=== PATIENT | female | born 1965 | race Caucasian/White ===

== ENCOUNTER 2019-04-13 13:00 | Outpatient (CLI) | payer MEDICARE, MEDICAID, SELFPAY | END 2019-04-13 13:01 | disposition home or self-care (01) | LOC: SLEEP 10-14 09:04 | PROVIDERS: PCP Nurse Practitioner Family; Visit Provider Internal Medicine Critical Care Medicine | DX: G47.34 Idiopathic sleep related nonobstructive alveolar hypoventilation (principal) | CPT/HCPCS: 94762 ==

== ENCOUNTER → 2019-04-14 14:05 | Outpatient (BNVA) | payer MEDICARE, MEDICAID, SELFPAY | PROVIDERS: Family Provider Nurse Practitioner Family; PCP Nurse Practitioner Family; Visit Provider Anesthesiology | DX: G89.29 Other chronic pain (principal); M54.5 Low back pain; M54.2 Cervicalgia; M79.7 Fibromyalgia; F17.210 Nicotine dependence, cigarettes, uncomplicated; Z79.891 Long term (current) use of opiate analgesic | CPT/HCPCS: 99214 ==

== ENCOUNTER → 2019-05-03 11:52 | Outpatient (BNVA) | payer MEDICARE, MEDICAID, SELFPAY | PROVIDERS: Family Provider Nurse Practitioner Family; PCP Nurse Practitioner Family; Visit Provider Nurse Practitioner Family | DX: N39.0 Urinary tract infection, site not specified (principal); B37.3 Candidiasis of vulva and vagina; N28.9 Disorder of kidney and ureter, unspecified | CPT/HCPCS: 81001; 87077; 87086; 87186 ==

== ENCOUNTER → 2019-05-11 00:01 | Outpatient (BNVA) | payer MEDICARE, MEDICAID, SELFPAY | PROVIDERS: Family Provider Nurse Practitioner Family; PCP Nurse Practitioner Family; Visit Provider Nurse Practitioner Family | DX: N39.0 Urinary tract infection, site not specified (principal) | CPT/HCPCS: 81001 ==

== ENCOUNTER 2019-05-13 15:34 | Outpatient (CLI) | payer MEDICARE, MEDICAID, SELFPAY ==
--- NOTE | 2019-05-13 15:45 | US_ITS ---
WS: [id number] RENAL ULTRASOUND HISTORY: flank pain - family history renal disease COMPARISON: None available. TECHNIQUE: 2-D and color Doppler imaging of the kidney submitted. Right kidney: 9.7 cm x 5.4 cm x 4.2 cm. Normal echogenicity with no hydronephrosis or mass. Left kidney: 10.3 cm x 4.0 cm x 4.8 cm. Normal echogenicity with no hydronephrosis or mass. Aorta: Normal. Urinary Bladder: Normal distention. US/US renal BI* [id number] IMPRESSION: Normal renal ultrasound.
== END 2019-05-13 15:35 | disposition home or self-care (01) ==
LOC: RAD 15:38
PROVIDERS: Family Provider Nurse Practitioner Family; PCP Nurse Practitioner Family; Visit Provider Nurse Practitioner Family
DX: R10.9 Unspecified abdominal pain (principal); Z84.1 Family history of disorders of kidney and ureter
CPT/HCPCS: 76770

== ENCOUNTER 2019-06-10 13:24 | Emergency (ER) | payer MEDICARE, MEDICAID, SELFPAY ==
[2019-06-10 13:25] VITALS: BP 164/91; PULSE 94; RESP 16; TEMP 36.7; O2SAT 97; BMI 22.1
--- NOTE | 2019-06-10 13:29 | ED_ITS ---
Entered by Violetta Perez, acting as scribe for Amalia Rivera DO HPI - General Adult General: Chief complaint: General Medical Stated complaint: FEVER THINKS MAY HAVE COVID-19 Time Seen by Provider: 06/10/19 13:29 Source: patient Mode of arrival: ambulatory Limitations: no limitations History of Present Illness: HPI narrative: 54 yo female presents with cough and runny nose. 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 pt states this started 1 month ago and has had two rounds of antibiotics and steroids. MD complaint: cough Onset (ago): week(s) (1 week ago) Location: head, face and mouth Radiation: non-radiation Severity: mild Quality: aching Pain Consistency: constant Relieving factors: none Exacerbating factors: other (cough, runny nose, cold symptoms) Associated symptoms: Reports cough, fevers/chills, headache(s), short of breath and other (runny nose) Treatments prior to arrival: other (antibotics 1 month ago 2 different rounds and steriods ) Review of Systems General: Reports: 10 or more systems reviewed and unremarkable except in HPI and below Neuro: Reports: headache Psych: Denies: sleeping more PFSH ED PFSH: Social History Smoking and tobacco status: current every day smoker cigarettes Packs smoked per day: 1 Alcohol intake: former Year of sobriety/quit date alcohol: 2006 Household members: spouse Housing: House Marital status: Current occupational status: employed Physical Exam Const: COMMON NORMALS: no apparent distress and oriented x3 GENERAL APPEARANCE: cooperative; not in distress HENMT: COMMON NORMALS: normocephalic HEAD & SCALP: normal to inspection and normocephalic MOUTH: lip normal and other (dry mucous membranes, redness to throat.) THROAT: posterior oropharynx normal and tonsils normal Neck/C-Spine: COMMON NORMALS: full ROM, no lymphadenopathy, supple and no meningeal signs GENERAL: Yes normal visual inspection and Yes trachea midline Chest: COMMONS NORMALS: inspection of chest normal Resp: COMMON NORMALS: clear to auscultation bilaterally AUSCULTATION: clear to auscultation bilaterally Cardio: COMMON NORMALS: regular rate, regular rhythm, S1 normal heart sound, S2 normal heart sound and no murmurs RATE: regular rate RHYTHM: regular rhythm HEART SOUNDS: S1 normal and S2 normal PERIPHERAL PULSES: radial pulses present and dorsalis pedis pulses present GI: COMMON NORMALS: normal to inspection, nondistended, normoactive bowel sounds, soft to palpation and non-tender INSPECTION: Yes normal to inspection AUSCULTATION: Yes normoactive bowel sounds PALPATION: Yes soft, No tender, No guarding and No rigid RECTAL EXAM: deferred : COMMON NORMALS: Yes no CVA tenderness BLADDER/KIDNEY EXAM: Yes no CVA tenderness Back/Pelvis: COMMON NORMALS: no CVA tenderness Extremity: COMMON NORMALS: normal to inspection, full ROM, normal capillary refill, no calf tenderness and no pedal edema Neuro: COMMON NORMALS: oriented x3, CN's II-XII intact bilaterally, moves all extremities and no focal motor deficits MENINGEAL SIGNS: Yes no meningeal signs Skin: COMMON NORMALS: no rashes or lesions noted GENERAL SKIN EXAM: no rashes or lesions noted Course ED course: I called Su MORFIN the nurse stated the pt is not to be tested due to her not having any respitory distress. Vital Signs: Vital signs: Vital Signs Temperature 98.1 F 06/10/19 13:25 Pulse Rate 81 06/10/19 15:23 Respiratory Rate 16 06/10/19 15:23 Blood Pressure 134/86 06/10/19 15:23 Pulse Oximetry 96 06/10/19 15:23 MDM - General Adult MDM Narrative: Medical decision making narrative: Pt does not have influenza and did not need testing for [place] virus per CDC. pt has albuterol at home, she has been on 2 different courses of abx and she has no fever. I will send her home with steroids and have her f/u with her pcp in 2 days for reeval. Pt will need to drink plenty of fluids and get plenty of rest. Lab Data: Labs: Lab Results 06/10/19 Range/Units 14:00 Influenza Type A A g Negative (Negative) POC Influenza B Ag Negative (Negative) Imaging Data^: CXR: Radiologist's impression: [address] [address] XRay Report Signed Patient: Otilia Reynaga #: [id number] : 1965Acct#:[id number] Age/Sex: 54 / FADM Date: 06/10/19 Loc: ERRoom/Bed: Attending Dr: Ordering Provider/Ordering MD: Amalia Rivera DO Date of Service: 06/10/19 Procedure(s): XR chest 1V portable [id number] Accession Number(s): [id number] Report Number: [id number] WS: [id number] Portable AP upright chest, 06/10/2019 Clinical Data: pneumonia Comparison: PA and lateral chest, 01/01/2018. Findings: No nodules, masses or effusions are seen. The heart is normal. The pulmonary vascularity is not increased. No pneumonia or pneumothorax is seen. The diaphragms are flattened XR/XR chest 1V portable [id number] Impression: Hyperinflation. Dictated By:Kalyani Todd MD Signed By:Kalyani Todd MDSigned Date/Time:06/10/19 1439 Discharge Plan Discharge Patient Disposition: Home, Self-Care Clinical Impression: Acute exacerbation of chronic obstructive pulmonary disease Condition: Stable Prescriptions: New prednisone 20 mg tablet 60 mg PO ONCE 5 Days Qty: 15 RF: 0 No Action fluconazole [Diflucan] 150 mg tablet 150 mg PO Q3D 10 Days Qty: 3 RF: 1 Premarin 1.25 mg tablet 1.25 mg PO QDAY RF: 0 cholecalciferol (vitamin D3) 50,000 unit capsule 50,000 unit PO .WEEKLY RF: 0 dicyclomine 20 mg tablet 20 mg PO QID RF: 0 Trelegy Ellipta 100-62.5-25 mcg blister with device 1 inh INHALATION Q24H RF: 0 albuterol sulfate [Ventolin HFA] 90 mcg/actuation HFA aerosol inhaler 2 puff INHALATION Q6H PRNRF: 0 Dexilant 60 mg capsule,biphase delayed releas 60 mg PO QDAY RF: 0 nitroglycerin [Nitrostat] 0.4 mg tablet, sublingual 0.4 mg SUBLINGUAL Q5M PRNRF: 0 alprazolam 1 mg tablet 1 mg PO .BEDTIME PRNRF: 0 oxycodone 5 mg tablet 5 mg PO QID PRN (Reason: pain) 30 Days Qty: 120 RF: 0 oxycodone 5 mg tablet 5 mg PO QID PRN (Reason: pain) 30 Days Qty: 120 RF: 0 Creon 36,000-114,000- 180,000 unit capsule,delayed release(DR/EC) 1 cap PO TID Qty: 90 RF: 3 chlordiazepoxide-clidinium [Librax (with clidinium)] 5-2.5 mg capsule 1 cap PO TID PRN (Reason: cramps) Qty: 30 RF: 5 mirtazapine 15 mg tablet 15 mg PO .BEDTIME Qty: 30 RF: 2 montelukast 10 mg tablet 10 mg PO QDAY Qty: 30 RF: 2 Discharge Orders: Discharge Order (Routine); Ordered 06/10/19 Ordered By: Amalia Rivera Referrals: Donaldo Willis, [facility] [Primary Care Provider] - 1-3 days Discharge Diet: Advance as tolerated Discharge Activity: Resume usual activity Patient Instructions: Chronic Obstructive Pulmonary Disease (ED) Activity Restrictions/Additional Instructions: no smoking, drink plenty of fluids and get plenty of rest. return if worse, any problem, any change. Stand Alone Forms: Work/School Release Coding Level of Care Code ED Environmental Health Aide for Chg Fwd Exam Comprehensive The documentation recorded by the Chris zamora Bridget Annette, accurately reflects the service I personally performed and the decisions made by Miguel cuevas Sonia M,
--- NOTE | 2019-06-10 13:51 | XR_ITS ---
WS: [id number] Portable AP upright chest, 06/10/2019 Clinical Data: pneumonia Comparison: PA and lateral chest, 01/01/2018. Findings: No nodules, masses or effusions are seen. The heart is normal. The pulmonary vascularity is not increased. No pneumonia or pneumothorax is seen. The diaphragms are flattened XR/XR chest 1V portable [id number] Impression: Hyperinflation.
[2019-06-10 14:00] VITALS: BP 128/94; PULSE 81; RESP 15; O2SAT 98
[2019-06-10 14:47] LABS: Influenza A by IFA Negative (Negative); Influenza B by IFA Negative (Negative)
[2019-06-10 15:23] VITALS: BP 134/86; PULSE 81; RESP 16; O2SAT 96
== END 2019-06-10 15:18 | disposition home or self-care (01) ==
LOC: ER 07-07 11:48
PROVIDERS: Emergency Provider Emergency Medicine; Family Provider Nurse Practitioner Family; PCP Family Medicine
DX: J44.1 Chronic obstructive pulmonary disease with (acute) exacerbation (principal); K86.81 Exocrine pancreatic insufficiency; F17.210 Nicotine dependence, cigarettes, uncomplicated
CPT/HCPCS: 12345; 71045; 87804; 99282; 99283

== ENCOUNTER → 2019-06-21 13:24 | Outpatient (BNVA) | payer MEDICARE, MEDICAID, SELFPAY | PROVIDERS: Family Provider Nurse Practitioner Family; PCP Family Medicine; Visit Provider Nurse Practitioner | DX: Z76.89 Persons encountering health services in other specified circumstances (principal); M54.9 Dorsalgia, unspecified; M54.2 Cervicalgia; F17.210 Nicotine dependence, cigarettes, uncomplicated; Z79.891 Long term (current) use of opiate analgesic | CPT/HCPCS: 99213 ==

== ENCOUNTER → 2019-07-21 16:40 | Outpatient (BNVA) | payer MEDICARE, MEDICAID, SELFPAY | PROVIDERS: Family Provider Nurse Practitioner Family; PCP Family Medicine; Visit Provider Nurse Practitioner Family | DX: R10.9 Unspecified abdominal pain (principal); R53.83 Other fatigue; R60.9 Edema, unspecified; E78.2 Mixed hyperlipidemia; M54.9 Dorsalgia, unspecified; E55.9 Vitamin D deficiency, unspecified; Z79.899 Other long term (current) drug therapy; R14.0 Abdominal distension (gaseous) | CPT/HCPCS: 74018; 80053; 80061; 81000; 82150; 82306; 83036; 83690; 83880; 84443; 85025 ==

== ENCOUNTER 2019-08-05 10:21 | Outpatient (CLI) | payer MEDICARE, BC, MEDICAID, SELFPAY ==
--- NOTE | 2019-08-05 10:15 | US_ITS ---
WS: [id number] ABDOMINAL ULTRASOUND REASON FOR EXAM: abdominal pain TECHNIQUE: Grayscale and Doppler ultrasound examination of the abdomen. FINDINGS: Pancreas: Within normal limits. Abdominal aorta and IVC: Within normal limits. Liver: Liver measures 7.7 cm in length. Normal hepatopedal circulation. Gallbladder: Gallbladder not visualized No stones. Common bile duct is 0.45 cm. Left kidney: Left kidney measures 9.1 cm x 4.1 cm x 4.5 cm. No hydronephrosis or stones. Right kidney: Right kidney measures 10.2 cm x 5.7 cm x 4.8 cm. No hydronephrosis or stones. Spleen: Spleen measures 8.9 cm within normal limits. US/US abdomen complete* [id number] IMPRESSION: Normal abdominal survey by ultrasound.
== END 2019-08-05 10:22 | disposition home or self-care (01) ==
LOC: RAD 10:28
PROVIDERS: Visit Provider Nurse Practitioner Family
DX: R10.9 Unspecified abdominal pain (principal)
CPT/HCPCS: 76700

== ENCOUNTER → 2019-08-08 16:23 | Outpatient (BNVA) | payer MEDICARE, MEDICAID, SELFPAY | PROVIDERS: PCP Nurse Practitioner Family; Visit Provider Internal Medicine Cardiovascular Disease | DX: I50.33 Acute on chronic diastolic (congestive) heart failure (principal); R06.02 Shortness of breath; E78.00 Pure hypercholesterolemia, unspecified; E78.5 Hyperlipidemia, unspecified; R07.89 Other chest pain; I34.0 Nonrheumatic mitral (valve) insufficiency; R10.13 Epigastric pain; I10 Essential (primary) hypertension | CPT/HCPCS: 80048; 83880 ==

== ENCOUNTER 2019-08-12 11:25 | Outpatient (CLI) | payer MEDICARE, MEDICAID, SELFPAY ==
[2019-08-12] MEDS: iohexol 300 mg/mL 50 mL Btl PO (11:45)
--- NOTE | 2019-08-12 13:00 | CT_ITS ---
WS: [id number] CT ABDOMEN PELVIS TECHNIQUE: Contrast-enhanced CT of the abdomen and pelvis with coronal and sagittal reformatted image s. CLINICAL INFORMATION: abdominal pain COMPARISON: MRI December 08, 2018 DLP: 1092.[address] scans at [facility] use at least one of these dose optimization techniques: automat ed exposure control; mA and/or kV adjustment per patient size (includes targeted exams where dose is matched to clinical indication); or iterative reconstruction. FINDINGS: Prior postoperative changes cholecystectomy. Appendectomy and hysterectomy. Mild diffuse fatty infiltration of the liver. Normal portal vein and splenic vein. Normal GE junction . Normal spleen. Small splenule. Adrenal glands are normal. Normal renal parenchymal enhancement. No hydronephrosis. Pancreas is normal in appearance. No evidence of acute pancreatitis. Lung bases are w ell aerated. Evidence of Stacey prior fundoplication. Normal caliber abdominal aorta. Normal sigmoid colon. Incidental fat-containing umbilical hernia. No evidence of small or obstruction. No abdominal or inguinal lymphadenopathy. CT/CT abdomen pelvis w con* [id number] IMPRESSION: 1. Mild diffuse fatty infiltration of the liver. 2. Prior cholecystectomy. Prior appendectomy and hysterectomy. 3. Normal renal parenchymal enhancement. No hydronephrosis. 4. Pancreas appears normal. 5. Normal caliber abdominal aorta. 6. Incidental fat-containing umbilical hernia. 7. Evidence of prior Stacey fundoplication.
[2019-08-12] MEDS: iohexol 300 mg/mL 100 mL Btl IV (13:14)
== END 2019-08-12 11:26 | disposition home or self-care (01) ==
LOC: RADWPI 11:29
PROVIDERS: Family Provider Nurse Practitioner Family; PCP Nurse Practitioner Family; Visit Provider Nurse Practitioner Family
DX: R10.9 Unspecified abdominal pain (principal); K76.0 Fatty (change of) liver, not elsewhere classified; K42.9 Umbilical hernia without obstruction or gangrene
CPT/HCPCS: 74177; Q9967

== ENCOUNTER 2019-09-09 09:17 | Outpatient (CLI) | payer MEDICARE, MEDICAID, SELFPAY ==
--- NOTE | 2019-09-09 09:30 | USCV_ITS ---
Otilia Reynaga Age: 54 Gender: F : 1965 Exam Date: 09/09/2019 09:20 Ordering Phys: Jero Ledbetter MD Technologist: Jolynn Hill Exam Location: [facility] Indication: SOB BP: / HR: 69 Rhythm: Sinus Technical Quality: Adequate MEASUREMENTS (Male / Female) Normal Values 2D ECHO LV Diastolic Diameter PLAX 3.5 cm 4.2 - 5.9 / 3.9 - 5.3 cm LV Systolic Diameter PLAX 2.4 cm LV Chamber Size 4.3 cm IVS Diastolic Thickness 1.1 cm 0.6 - 1.0 / 0.6 - 0.9 cm IVS Systolic Thickness 1.8 cm LVPW Diastolic Thickness 1.1 cm 0.6 - 1.0 / 0.6 - 0.9 cm LVPW Systolic Thickness 1.4 cm RV Chamber Size 3.0 cm LVOT Diameter 2.0 cm LV Ejection Fraction 2D Teich 63.2 % LV Ejection Fraction MOD 2C 31.4 % LV Ejection Fraction 2C AL 32.0 % LA Diameter 3.0 cm LA Width 2.1 cm LA Height 3.4 cm RA Width 3.0 cm RA Height 3.8 cm Aorta at Sinotubular Diameter 2.6 cm M-MODE LV Diastolic Diameter MM 4.0 cm 4.2 - 5.9 / 3.9 - 5.3 cm LV Systolic Diameter MM 3.1 cm LV Ejection Fraction MM Teich 44.8 % IVS Diastolic Thickness MM 1.0 cm 0.6 - 1.0 / 0.6 - 0.9 cm IVS Systolic Thickness MM 1.4 cm LVPW Diastolic Thickness MM 1.0 cm 0.6 - 1.0 / 0.6 - 0.9 cm LVPW Systolic Thickness MM 1.1 cm RV Diastolic Diameter MM 1.3 cm Aortic Annulus Diameter 1.9 cm LA Ao Ratio MM 1.6 MV E Point Septal Separation 0.5 cm DOPPLER AV Peak Velocity 225.0 cm/s LVOT Peak Velocity 97.0 cm/s AV Area Cont Eq vti 0.8 cm squared AV Area Cont Eq pk 1.4 cm squared MV Area PHT 4.8 cm squared Mitral E to A Ratio 1.1 MV E' Velocity 8.0 cm/s Mitral E to MV E' Ratio 11.7 Mitral E to LV E' Lateral Ratio 12.3 Mitral E to LV E' Septal Ratio 11.1 TR Peak Velocity 237.5 cm/s TR Peak Gradient 22.6 mmHg TR Mean Velocity 151.6 cm/s TR Mean Gradient 11.4 mmHg TR Velocity Time Integral 72.0 cm TV Peak E Velocity 79.0 cm/s Right Atrial Pressure 3.0 mmHg Pulmonary Artery Systolic Pressu 25.6 mmHg PV Peak Velocity 70.0 cm/s RV Acceleration Time 0.2 s RV Ejection Time 0.3 s RV AcT/ET 0.6 FINDINGS Left Ventricle Normal left ventricular size and systolic function, EF55%. No regional wall motion abnormalities. Right Ventricle Normal right ventricular size and systolic function. Right Atrium The right atrium is normal in size. Left Atrium The left atrium is normal in size. Mitral Valve Mild prolapse of the anterior mitral valve leaflet. Aortic Valve No gross abnormalities . Tricuspid Valve Otiw-hi-yhxdpztc tricuspid valve regurgitation. Pulmonic Valve Pulmonic valve not well visualized. Pericardium No pericardial effusion. Aorta Normal aortic annulus size. CONCLUSIONS Normal left ventricular size and systolic function, EF55%. Mild prolapse of the anterior mitral valve leaflet. [id number]-vexwpezh tricuspid valve regurgitation. No regional wall motion abnormalities. There is no pericardial effusion. There are no intracardiac masses. Compared to the study from 02/25/2017, there may not be a significant change Dr Brenna Avendano MD FACC (Electronically Signed) Final Date: 09 September 2019 15:28 S
--- NOTE | 2019-09-09 10:50 | PFTS_ITS ---
Date of Study:09/09/19 Date of Dictation: MECHANICS: Forced vital capacity (FVC) is reduced. Forced expiratory volume in one second (FEV1) is reduced. FEV1/FVC is normal. FLOW VOLUME LOOP: Mild scooping. LUNG VOLUMES: Total lung capacity (TLC) is reduced. Residual volume (RV) is reduced. DIFFUSING CAPACITY FOR CARBON MONOXIDE: Moderately reduced. INTERPRETATION: The pulmonary function tests are consistent with mild restriction. There is no significant postbronchodilator response. The mild scooping in the flow volume loop likely suggest small airways disease. Lung volumes are suggestive of restriction. Gas exchange (DLCO) is moderately reduced. MTDD
== END 2019-09-09 09:18 | disposition home or self-care (01) ==
LOC: RAD 09:23
PROVIDERS: PCP Nurse Practitioner Family; Visit Provider Internal Medicine Critical Care Medicine
DX: R06.02 Shortness of breath (principal); I08.1 Rheumatic disorders of both mitral and tricuspid valves
CPT/HCPCS: 93306; 94060; 94726; 94729; J7611

== ENCOUNTER → 2019-09-14 14:23 | Outpatient (BNVA) | payer MEDICARE, MEDICAID, SELFPAY | PROVIDERS: PCP Nurse Practitioner Family; Visit Provider Anesthesiology | DX: G89.29 Other chronic pain (principal); R10.9 Unspecified abdominal pain; R10.13 Epigastric pain; M54.2 Cervicalgia; F17.210 Nicotine dependence, cigarettes, uncomplicated; Z79.891 Long term (current) use of opiate analgesic; Z71.6 Tobacco abuse counseling | CPT/HCPCS: 99214 ==

== ENCOUNTER → 2019-10-14 08:35 | Outpatient (BNVA) | payer MEDICARE, MEDICAID, SELFPAY | PROVIDERS: PCP Nurse Practitioner Family; Visit Provider Anesthesiology | DX: G89.29 Other chronic pain (principal); M54.2 Cervicalgia; R10.13 Epigastric pain; F17.210 Nicotine dependence, cigarettes, uncomplicated; Z79.891 Long term (current) use of opiate analgesic; Z71.6 Tobacco abuse counseling | CPT/HCPCS: 99214 ==

== ENCOUNTER → 2019-11-02 11:59 | Outpatient (BNVA) | payer MEDICARE, MEDICAID, SELFPAY | PROVIDERS: PCP Nurse Practitioner Family; Visit Provider Nurse Practitioner Family | DX: I10 Essential (primary) hypertension (principal); R10.9 Unspecified abdominal pain; E55.9 Vitamin D deficiency, unspecified; K86.81 Exocrine pancreatic insufficiency; E78.5 Hyperlipidemia, unspecified; R19.7 Diarrhea, unspecified; R10.84 Generalized abdominal pain; R73.03 Prediabetes | CPT/HCPCS: 80053; 80061; 81001; 82150; 82306; 83036; 83690; 83880; 84443; 85025; 87077; 87086; 87186 ==

== ENCOUNTER → 2019-11-04 08:30 | Outpatient (BNVA) | payer MEDICARE, MEDICAID, SELFPAY | PROVIDERS: PCP Nurse Practitioner Family; Visit Provider Internal Medicine | DX: R73.03 Prediabetes (principal); K86.1 Other chronic pancreatitis; K52.9 Noninfective gastroenteritis and colitis, unspecified; E78.5 Hyperlipidemia, unspecified; E55.9 Vitamin D deficiency, unspecified | CPT/HCPCS: 99203 ==

== ENCOUNTER → 2019-11-21 12:19 | Outpatient (BNVA) | payer MEDICARE, MEDICAID, SELFPAY | PROVIDERS: PCP Nurse Practitioner Family; Visit Provider Nurse Practitioner Family | DX: N39.0 Urinary tract infection, site not specified (principal) | CPT/HCPCS: 81003 ==

== ENCOUNTER → 2019-12-01 13:27 | Outpatient (BNVA) | payer MEDICARE, MEDICAID, SELFPAY | PROVIDERS: PCP Nurse Practitioner Family; Visit Provider Nurse Practitioner Family | DX: N39.0 Urinary tract infection, site not specified (principal) | CPT/HCPCS: 81003 ==

== ENCOUNTER → 2019-12-07 09:40 | Outpatient (BNVA) | payer MEDICARE, MEDICAID, SELFPAY | PROVIDERS: PCP Nurse Practitioner Family; Visit Provider Anesthesiology | DX: G89.29 Other chronic pain (principal); R10.84 Generalized abdominal pain; M54.2 Cervicalgia; F17.210 Nicotine dependence, cigarettes, uncomplicated; Z71.6 Tobacco abuse counseling; Z79.891 Long term (current) use of opiate analgesic | CPT/HCPCS: 99214 ==

== ENCOUNTER → 2020-01-02 14:57 | Outpatient (BNVA) | payer MEDICARE, MEDICAID, SELFPAY | PROVIDERS: PCP Nurse Practitioner Family; Visit Provider Nurse Practitioner Family | DX: J18.9 Pneumonia, unspecified organism (principal); Z20.828 Contact with and (suspected) exposure to other viral communicable diseases | CPT/HCPCS: 87400 ==

== ENCOUNTER → 2020-01-03 10:27 | Outpatient (BNVA) | payer MEDICARE, MEDICAID, SELFPAY | PROVIDERS: PCP Nurse Practitioner Family; Visit Provider Nurse Practitioner Family | DX: Z11.59 Encounter for screening for other viral diseases (principal) | CPT/HCPCS: 87635 ==

== ENCOUNTER → 2020-01-23 12:26 | Outpatient (BNVA) | payer MEDICARE, MEDICAID, SELFPAY | PROVIDERS: PCP Nurse Practitioner Family; Visit Provider Family Medicine | DX: I10 Essential (primary) hypertension (principal); Z86.19 Personal history of other infectious and parasitic diseases; Z79.899 Other long term (current) drug therapy; R05 Cough; R06.02 Shortness of breath; J98.11 Atelectasis; R91.8 Other nonspecific abnormal finding of lung field; R59.9 Enlarged lymph nodes, unspecified | CPT/HCPCS: 71046; 80053; 82728; 84145; 85025; 85379; 85651; 86140 ==

== ENCOUNTER 2020-01-24 07:33 | Outpatient (CLI) | payer MEDICARE, MEDICAID, SELFPAY ==
--- NOTE | 2020-01-24 08:00 | CT_ITS ---
WS: [id number] CTA OF THE CHEST WITH PULMONARY EMBOLISM PROTOCOL TECHNIQUE: High-resolution contrast enhanced CTA of the chest with coronal and sagittal reformatted i mages with pulmonary embolism protocol. MIP images are also reviewed. CLINICAL INFORMATION: cough, sob, hx of covid 19 COMPARISON: CT abdomen pelvis May 14, 2019 DLP: 777.[address] scans at [facility] use at least one of these dose optimization techniques: automat ed exposure control; mA and/or kV adjustment per patient size (includes targeted exams where dose is matched to clinical indication); or iterative reconstruction. FINDINGS: Prior postoperative changes cholecystectomy and Stacey fundoplication. Mild diffuse fatty infiltratio n of the liver. Proximal main pulmonary arteries are normal. Normal segmental and subsegmental pulmon sd arteries. No evidence of pulmonary embolus. Enlarged mediastinal lymph nodes largest measuring 11 mm nonspecific but may be reactive. Slightly prominent AP window lymph nodes. Bronchovascular thicke reddy along the right hilum. Mild chronic emphysematous changes. No acute pulmonary infiltrates. No focal consolidation or pleural fluid. Noncalcified nodule right lo wer lobe measuring 3.5 mm. Atelectasis in the lung bases. Additional tiny noncalcified nodule superio r segment left lower lobe measuring [address]/CT angio chest PE protcl [id number] IMPRESSION: 1. No evidence for pulmonary embolus. 2. Lungs are well aerated. Slight atelectasis in the lung bases. 3. A few subcentimeter noncalcified nodules measuring up to 3.5 mm. Recommend 12 month follow-up. 4. Enlarged anterior mediastinal and peribronchial lymph nodes nonspecific but likely reactive. 5. Prior Stacey fundoplication. 6. Prior cholecystectomy with pneumobilia.
[2020-01-24] MEDS: iohexol 350 mg/mL 100 mL Btl IV (08:30)
== END 2020-01-24 07:34 | disposition home or self-care (01) ==
LOC: RADWPI 07:39
PROVIDERS: Family Provider Nurse Practitioner Family; PCP Nurse Practitioner Family; Visit Provider Family Medicine
DX: R05 Cough (principal); R06.02 Shortness of breath; Z86.19 Personal history of other infectious and parasitic diseases; J98.11 Atelectasis; R91.8 Other nonspecific abnormal finding of lung field; R59.9 Enlarged lymph nodes, unspecified
CPT/HCPCS: 71046; 71275; Q9967

== ENCOUNTER → 2020-02-01 14:51 | Outpatient (BNVA) | payer MEDICARE, MEDICAID, SELFPAY | PROVIDERS: Family Provider Nurse Practitioner Family; PCP Nurse Practitioner Family; Visit Provider Nurse Practitioner Family | DX: I50.33 Acute on chronic diastolic (congestive) heart failure (principal); R73.03 Prediabetes; I10 Essential (primary) hypertension | CPT/HCPCS: 80053; 83036 ==

== ENCOUNTER → 2020-02-06 13:05 | Outpatient (BNVA) | payer MEDICARE, MEDICAID, SELFPAY | PROVIDERS: Family Provider Nurse Practitioner Family; PCP Nurse Practitioner Family; Visit Provider Internal Medicine | DX: K86.9 Disease of pancreas, unspecified (principal); R73.03 Prediabetes | CPT/HCPCS: 99213 ==

== ENCOUNTER → 2020-02-15 09:00 | Outpatient (BNVA) | payer MEDICARE, MEDICAID, SELFPAY | PROVIDERS: Family Provider Nurse Practitioner Family; PCP Family Medicine; Visit Provider Anesthesiology | DX: G89.29 Other chronic pain (principal); R10.84 Generalized abdominal pain; M54.2 Cervicalgia; F17.210 Nicotine dependence, cigarettes, uncomplicated; Z79.891 Long term (current) use of opiate analgesic; Z71.6 Tobacco abuse counseling | CPT/HCPCS: 99214 ==

== ENCOUNTER 2020-02-22 10:22 | Outpatient (CLI) | payer MEDICARE, MEDICAID, SELFPAY ==
--- NOTE | 2020-02-24 11:17 | ONC FU_ITS ---
Dr. Cevallos Patient Follow-Up Note Patient: Otilia Reynaga Unit #: [id number]: 1965 Dicatated By: Vidal Cevallos M.D.Date of Visit:Feb 22, 2020 Onc Med Follow-up/Prog Note Chief Complaint: Mediastinal lymphadenopathy. History of Present Illness: This is a 54 year-old woman with mediastinal lymphadenopathy. I had seen her on 07/10/2015 in regard to mediastinal lymphadenopathy. This was first discovered on a chest CT scan in November 2014. At the time, she was having shortness of breath, cough, and rib pain. The CT showed mild hyperinflation with minimal peripheral bullous change near the diaphragm. There were no pulmonary infiltrates or mass lesions identified. Also noted was an 8 mm pretracheal lymph node and a couple of subcentimeter aortopulmonary window lymph nodes. She had a repeat chest CT without IV contrast on 06/01/2015. That study showed an isolated lymph node in the superior mediastinum measuring 1.3 cm. It was otherwise reported to be unremarkable. Her evaluation in June 2015 included CBC showing hemoglobin 14.1 g, white blood cell count 9200, and platelet count 253,000. Sedimentation rate was normal at 7 mm/hour. CRP was normal at 0.399 mg/dL. Comprehensive metabolic profile was unremarkable. B12 and TSH levels were normal. Bilateral mammograms prior to that visit were negative. She had multiple complaints including pain in the chest and epigastric area, which she attributed to esophageal spasms. She complained of severe fatigue and she reported decreased appetite and weight loss in the range of 20 pounds. Given the laboratory findings, I had just recommended observation/expectant management. A follow-up CT scan on 09/28/2015 showed hyperexpanded lungs with centrilobular emphysematous changes primarily in the upper lobes. Right paratracheal and AP window lymph nodes were noted to be stable, maximum diameter 1 cm. There were no new mediastinal lymph nodes, and there was no hilar, axillary, or supraclavicular lymphadenopathy noted. In December 2015 she was seen in the emergency room with abdominal pain. This was thought to be due to a stomach bug . Contrast-enhanced CT of the abdomen showed no acute findings. Surveillance chest CT on 10/10/2016 showed evidence of chronic emphysema with stable nonenlarged right paratracheal and AP window lymph nodes. There was no new mediastinal or hilar adenopathy noted. The spleen and included portions of liver appeared normal. She continued on observation/expectant management. A noncontrast chest CT on 12/04/2017 showed mild chronic emphysema. There were no acute pulmonary infiltrates or mass lesions. Prominent AP window and paratracheal lymph nodes appeared unchanged. X-ray of the lumbar spine at that time showed no significant abnormalities. She underwent EGD and colonoscopy by Dr. House on 02/12/2017. The EGD showed severe, chronic gastritis but normal appearing esophagus. The colonoscopy showed no abnormal findings. She was given a prescription for Dexilant. As of her follow-up visit with ct January 2018, she appeared stable clinically. On a repeat chest CT on 10/15/2018 the previously reported prominent lymph nodes appeared to have significantly decreased in size. During her further follow-up with Dr. 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 She had further GI evaluation through [facility] in [place], including ERCP. She apparently had a plexus block, but that did not help the pain significantly. She apparently also underwent placement of biliary stent, which she did not tolerate. Her other medical illnesses including COPD, GERD, esophageal spasm, irritable bowel syndrome, and degenerative arthritis. She has a history of hepatitis C, genotype 1a, initially diagnosed at age 28. She completed treatment with pegylated interferon and ribavirin in 2008. She also has a history of ADHD with chronic anxiety, and she has a history of depression. She has a history of smoking 1 pack of cigarettes daily. INTERIM HISTORY: On 01/03/2020 she was confirmed to have COVID-19 virus infection. She was managed as an outpatient. She had a follow-up visit with Dr. Mendenhall on 01/23/2020. At that time she had multiple complaints, including chest pain and shortness of breath, but she was not overtly hypoxic. Her CBC showed normal hemoglobin at 13.9 g with white blood cell count 11,600 and platelet count 289,000. Sed rate was normal at 16 mm/hour. Her comprehensive metabolic profile was unremarkable. Renal function was normal with BUN 13 and creatinine 0.7 mg/dL, and the liver enzymes were normal. Her CT pulmonary angiogram on 01/24/2020 showed no evidence for pulmonary embolism. There was slight atelectasis noted in the lung bases. There was no acute pulmonary infiltrate. A few subcentimeter noncalcified nodules were noted, measuring up to 3.5 mm. There were slightly enlarged mediastinal lymph nodes, the largest measuring 11 mm, felt to be nonspecific but most likely reactive. AP window lymph nodes also noted to be slightly prominent. I am asked to see her seen now in regard to the mediastinal lymphadenopathy and to her potential thromboembolic risk with the COVID-19 infection. She complains that her heart and lungs have not been the same since the COVID-19 infection. She has very poor energy. She says she cannot do anything without getting dizzy and out of breath. Her ECOG score is 3. Her appetite is not good, she continues to have postprandial nausea and abdominal pain. She has, though, had significant weight gain. She has not had fever. She does report having hot flashes. She indicates that she has had sinus and ear infection in association with pneumonia and that she has had antibiotics for times. She says she has choking and aspiration. She has shortness of breath and wheezing. She has cough productive of clear sputum. She has pressure-like pain in her chest for which she has been taking nitroglycerin. She has diarrhea, which she says is normal for her. She was having red blood in the stool, that has resolved. She has frequent urination. She complains that she hurts all over and that her pain has been way worse since the COVID-19 infection. She has headaches and she has dizziness. She has no focal neurologic symptoms. Medications: Albuterol Sulfate 2 Puff(s) (of 108 (90 base) mcg/act) Aerosol Powder, Breath Activated Inhalation q 6 hours, Atorvastatin Calcium 1 Tablet (of 40 mg) Oral daily, Budesonide-Formoterol Fumarate 1 Puff(s) (of 80-4.5 mcg/act) Aerosol Inhalation q 12 hours, Dexilant 1 Tablet (of 60 mg) Capsule Delayed Release Oral daily, Dicyclomine HCl 1 Tablet (of 20 mg) Oral four times a day, Diphenoxylate-Atropine 1 Tablet (of 2.5-0.025 mg) Oral q 6 hours PRN, Hydrocodone-Acetaminophen 1 Tablet (of 7.5-325 mg) Oral four times a day, Losartan Potassium 1 Tablet (of 25 mg) Oral daily, Premarin (1.25 mg) Tablet Oral daily, Singulair 1 (10 mg) Tablet Oral at bedtime, Tiotropium [place] Monohydrate 2 Puff(s) (of 2.5 mcg/act) Aerosol, solution Inhalation every am, Xanax 1 (1 mg) Tablet Oral at bedtime Allergies: Sulfabenzamide Review of Systems: Constitutional - She has very poor activity tolerance. She says she cannot do anything without getting dizzy and out of breath. She does not have good appetite, but she has had significant weight gain. She does not have fever. She does have hot flashes. ECOG score is 3, ENMT - She has had sinus and ear infection with pneumonia, and she says she has had antibiotic therapy 4 times. No mouth sores. No sore. She reports having choking and aspiration, Hematologic/Lymphatic - She says she has been bruising a lot more easily, Respiratory - She has shortness of breath and wheezing. She has cough productive of clear sputum. No pleuritic pain or hemoptysis, Cardiovascular - She has had pressure-like pain in her chest. She is using nitroglycerin. No palpitations, Gastrointestinal - She has postprandial nausea and abdominal pain. She has acid reflux, managed with Dexilant. She has diarrhea. She had been having red blood in the stool, but that has improved, Genitourinary (F) - No dysuria or hematuria. She has frequent urination. No urgency or incontinence, Musculoskeletal - She complains that she hurts all over. She says her pain has been way worse since the COVID-19 infection, Neurologic - She has had some headaches and she also complains of dizziness. No numbness or tingling. No other focal neurologic symptoms, Psychiatric - Her anxiety/depression has been bad. She does not sleep well at night. Vital Signs: Performed on Feb 22, 2020 10:30 Height - 68.50 in Weight - 166.8 lbs (HIGH) BSA - 1.90 sq.m BMI - 24.99 Temperature - 97.6 F (LOW) Pulse - 62 /min Respiration - 24 /min BP - 115/74 mm(hg) O2 Sat - 99 % Pain - 6 Physical Examination: Constitutional - She does not appear acutely ill, Eyes - Sclerae nonicteric. Conjunctivae clear, ENMT - No lesions noted in the oral cavity, Hematologic/Lymphatic - No cervical, clavicular, or axillary adenopathy, Respiratory - Lungs sound clear, Cardiovascular - Heart rhythm is regular. There is no murmur, gallop, or rub noted, Abdomen - Soft with mild tenderness across the upper abdomen. Liver and spleen are not enlarged. There is no abdominal mass or ascites noted and there is no inguinal adenopathy, Extremities - No edema, Integumentary - No rashes. No suspicious skin lesions noted, Neurologic - No focal neurologic deficits noted. Impression: 1. Patient with mildly enlarged superior mediastinal lymph node by chest CT in May 2015. The clinical significance of this was uncertain. It had remained stable on surveillance CT scans, so that the probability of any underlying malignancy appeared to be very low. 2. She has had CT evidence of underlying COPD. 3. She has had multiple chronic GI complaints and, in addition to esophageal spasms, she was determined to have exocrine pancreatic insufficiency. 4. She has a history of treated hepatitis C, genotype 1a. Her other medical illnesses include: 5. Irritable bowel syndrome. 6. Mitral valve prolapse. 7. GERD. 8. History of polysubstance abuse, in remission. 9. Nicotine dependence (cigarettes). 10. Degenerative arthritis. 11. History of ADHD with chronic anxiety. 12. History of depression. On 01/03/2020 she was confirmed to have COVID-19 virus infection. She was able to be managed as an outpatient, and she does appear to be showing adequate recovery. She had complained of shortness of breath and chest pain. Her CT pulmonary angiogram on 01/24/2020 showed no evidence of pulmonary embolism. She was noted to have borderline enlarged mediastinal lymph nodes, felt to be most likely reactive. These do not appear to have increased significantly compared to previous studies. As before, the probability of malignancy is very low. Plan: In the absence of any evidence of thromboembolism there appears to be no indication for anticoagulation and with no evidence for any significant increase in her mediastinal lymphadenopathy, the likelihood of underlying malignancy remains very low, and she can just continue with observation/expectant management. I will review the CT scans, but I will plan to see her again only as needed. Signed By: Vidal Cevallos M.D. <<Signature on File>>
== END 2020-02-22 10:23 | disposition home or self-care (01) ==
LOC: ONCMED 10:28
PROVIDERS: Family Provider Nurse Practitioner Family; PCP Family Medicine; Visit Provider Internal Medicine Medical Oncology
DX: R59.0 Localized enlarged lymph nodes (principal); J44.9 Chronic obstructive pulmonary disease, unspecified; K86.81 Exocrine pancreatic insufficiency; K58.9 Irritable bowel syndrome, unspecified; I34.1 Nonrheumatic mitral (valve) prolapse; K21.9 Gastro-esophageal reflux disease without esophagitis; F19.11 Other psychoactive substance abuse, in remission; F17.210 Nicotine dependence, cigarettes, uncomplicated; M19.90 Unspecified osteoarthritis, unspecified site; Z86.19 Personal history of other infectious and parasitic diseases; Z86.59 Personal history of other mental and behavioral disorders; Z79.01 Long term (current) use of anticoagulants; Z79.899 Other long term (current) drug therapy
CPT/HCPCS: 99214

== ENCOUNTER 2020-02-27 12:54 | Outpatient (CLI) | payer MEDICARE, MEDICAID, SELFPAY ==
--- NOTE | 2020-02-27 13:30 | USCV_ITS ---
Otilia Reynaga Age: 54 Gender: F : 1965 Exam Date: 02/27/2020 13:40 Ordering Phys: Brenna Avendano MD ([email or web address]) Technologist: Jolynn Hill Exam Location: [facility] [place] Indication: POST COVID. CHEST PAIN AT TIME SEVERE AND SOB STILL BP: 140 / 90 HR: 51 Rhythm: Sinus Technical Quality: Adequate MEASUREMENTS (Male / Female) Normal Values 2D ECHO LV Diastolic Diameter PLAX 3.9 cm 4.2 - 5.9 / 3.9 - 5.3 cm LV Systolic Diameter PLAX 3.0 cm LV Chamber Size 3.7 cm IVS Diastolic Thickness 1.3 cm 0.6 - 1.0 / 0.6 - 0.9 cm IVS Systolic Thickness 1.3 cm LVPW Diastolic Thickness 0.9 cm 0.6 - 1.0 / 0.6 - 0.9 cm LVPW Systolic Thickness 1.2 cm RV Chamber Size 2.3 cm LVOT Diameter 2.0 cm LV Ejection Fraction 2D Teich 45.8 % LV Ejection Fraction MOD 2C 59.6 % LV Ejection Fraction 2C AL 62.7 % LA Diameter 3.2 cm LA Width 2.9 cm LA Height 3.6 cm RA Width 2.8 cm RA Height 4.0 cm Aorta at Sinotubular Diameter 2.6 cm M-MODE LV Diastolic Diameter MM 4.7 cm 4.2 - 5.9 / 3.9 - 5.3 cm LV Systolic Diameter MM 3.4 cm LV Ejection Fraction MM Teich 52.6 % IVS Diastolic Thickness MM 1.0 cm 0.6 - 1.0 / 0.6 - 0.9 cm IVS Systolic Thickness MM 1.5 cm LVPW Diastolic Thickness MM 0.8 cm 0.6 - 1.0 / 0.6 - 0.9 cm LVPW Systolic Thickness MM 1.5 cm RV Diastolic Diameter MM 1.7 cm Aortic Annulus Diameter 2.8 cm LA Ao Ratio MM 1.2 MV E Point Septal Separation 0.3 cm DOPPLER AV Peak Velocity 142.0 cm/s LVOT Peak Velocity 78.0 cm/s AV Area Cont Eq vti 2.0 cm squared AV Area Cont Eq pk 1.8 cm squared MV Area PHT 3.5 cm squared Mitral E to A Ratio 0.9 MV E' Velocity 57.5 cm/s Mitral E to MV E' Ratio 13.1 Mitral E to LV E' Lateral Ratio 15.6 Mitral E to LV E' Septal Ratio 11.4 TR Peak Velocity 266.4 cm/s TR Peak Gradient 28.4 mmHg TR Mean Velocity 162.2 cm/s TR Mean Gradient 12.6 mmHg TR Velocity Time Integral 88.3 cm TV Peak E Velocity 74.0 cm/s Right Atrial Pressure 15.0 mmHg Pulmonary Artery Systolic Pressu 43.4 mmHg PV Peak Velocity 63.0 cm/s RV Acceleration Time 0.1 s RV Ejection Time 0.3 s RV AcT/ET 0.3 FINDINGS Left Ventricle Normal left ventricular size and systolic function, EF 55 %. No regional wall motion abnormalities. Right Ventricle The right ventricle is normal in size and function. Right Atrium The right atrium is normal in size. Left Atrium 09/09/2019, the left atrium is normal in size. Mitral Valve Thickened mitral valve. Mild mitral valve regurgitation. Aortic Valve Structurally normal aortic valve without significant sclerosis or stenosis. There is no aortic regurgitation. Tricuspid Valve Mild tricuspid valve regurgitation. Estimated pulmonary artery peak systolic pressure of 43 mmHg Pulmonic Valve No gross abnormalities noted Pericardium Normal pericardium without effusion. Aorta Normal ascending aorta dimension. CONCLUSIONS Normal left ventricular size and systolic function, EF 55 %. No regional wall motion abnormalities. Thickened mitral valve. Mild mitral valve regurgitation. Structurally normal aortic valve without significant sclerosis or stenosis. There is no aortic regurgitation. There is no pericardial effusion. There are no intracardiac masses. Mild pulmonary hypertension. Pulmonary artery peak systolic pressure of 43 mmHg Compared to the study from 09/09/2019, there is development of mild pulmonary hypertension Revised copy of the study report from 02/27/2020 Dr Brenna Avendano MD [facility] (Electronically Signed) Final Date: 27 February 2020 20:01 Amended: 27 February 2020 20:13 C
== END 2020-02-27 12:55 | disposition home or self-care (01) ==
LOC: RAD 13:00
PROVIDERS: PCP Family Medicine; Visit Provider Internal Medicine Cardiovascular Disease
DX: R07.89 Other chest pain (principal); R06.02 Shortness of breath; I27.20 Pulmonary hypertension, unspecified; I34.0 Nonrheumatic mitral (valve) insufficiency
CPT/HCPCS: 83880; 93306

== ENCOUNTER → 2020-03-08 09:54 | Outpatient (BNVA) | payer MEDICARE, MEDICAID, SELFPAY | PROVIDERS: PCP Family Medicine; Visit Provider Anesthesiology Pain Medicine | DX: R10.84 Generalized abdominal pain (principal); K86.89 Other specified diseases of pancreas; K86.1 Other chronic pancreatitis | CPT/HCPCS: 99203 ==

== ENCOUNTER → 2020-03-20 12:02 | Outpatient (BNVA) | payer MEDICARE, MEDICAID, SELFPAY | PROVIDERS: PCP Family Medicine; Visit Provider Family Medicine | DX: R06.2 Wheezing (principal) | CPT/HCPCS: 71046; 87400 ==

== ENCOUNTER 2020-03-29 17:30 | Emergency (ER) | payer MEDICARE, MEDICAID, SELFPAY ==
[2020-03-29 17:41] VITALS: BP 152/96; PULSE 81; RESP 16; TEMP 36.6; O2SAT 99; BMI 22.4
[2020-03-29 17:48] VITALS: O2SAT 99
--- NOTE | 2020-03-29 17:48 | XR_ITS ---
WS: [id number] Exam: XR chest 1V portable [id number] Date/Time of Exam: 03/29/2020 5:59 PM Reason For Exam: sob Comparison 03/20/2020. Findings: The lungs are clear and fully expanded. Costophrenic angles are sharp. No infiltrates. Bronchovascula r relief appears normal. Cardiac silhouette is unremarkable. Bony elements are intact. XR/XR chest 1V portable [id number] IMPRESSION: Unremarkable chest radiograph.
--- NOTE | 2020-03-29 17:48 | ECG_ITS ---
[facility] Test Date: 2020-03-29 Pat Name: Otilia Reynaga Department: Room: Gender: Female Scarf Gluer: : 1965 Requested By: Natalio Salgado Order Number: [id number] Bryan MD: Aristides Guevara M.D. Measurements Intervals [place] Rate: 66 P: 61 [place]: 160 QRS: 3 QRSD: 145 T: 73 QT: 419 QTc: 440 Interpretive Statements SINUS RHYTHM POSSIBLE LEFT ATRIAL ENLARGEMENT [-0.1mV P WAVE IN V1/V2] LEFT BUNDLE BRANCH BLOCK [120+ ms QRS DURATION, 80+ ms Q/S IN V1/V2, 85+ ms R IN I/aVL/V5/V6] Compared to ECG 09/03/2016 12:37:03 Left bundle-branch block now present Sinus bradycardia no longer present Electronically Signed On 03-30-2020 18:30:17 SUPERINTENDENT REFUSE DISPOSAL by Aristides Guevara M.D. [email or web address] [employer] [employer] Receive/store/[id number]
--- NOTE | 2020-03-29 17:49 | ED_ITS ---
HPI - General Adult General: Chief complaint: General Medical Stated complaint: LOW O2 SATS Time Seen by Provider: 03/29/20 17:48 Source: patient Mode of arrival: ambulatory Limitations: no limitations History of Present Illness: HPI narrative: 54-year-old female who is here by EMS with shortness of breath and some chest pain. She states that she has had intermittent shortness of breath and palpitations heart rate into the 120s she denies any worsening or improving factors. She states she feels much improved and is currently asymptomatic. Associated symptoms: Reports chest pain and dyspnea; Deny headache(s), nausea, rash or vomiting Review of Systems Const: Denies: fever(s), chills, body aches or change in appetite Eyes: Denies: blurry vision or eye discomfort ENMT: Denies: throat pain or dental pain Card: Reports: chest pain Resp: Reports: dyspnea GI: Denies: abdominal pain, nausea, vomiting or diarrhea : Denies: dysuria Musc: Denies: neck pain or back pain Skin/Breast: Denies: rash Neuro: Denies: headache(s) Psych: Denies: depression Reid/Lymph: Denies: easy bruising All/Imm: Denies: urticaria PFSH ED PFSH: Medical History (Updated 03/29/20 @ 20:05 by Natalio Salgado MD) Abdominal pain Abnormal chest x-ray with multiple lung nodules ADHD (attention deficit hyperactivity disorder) Anxiety and depression Atypical chest pain The EKG from 08/04/2019 was reviewed which revealed normal sinus rhythm with a left bundle branch block. Secondary ST-T changes. Otherwise unremarkable. Benign essential hypertension with target blood pressure below 140/90 Breast cancer screening by mammogram Chronic hepatitis C without hepatic coma Treated Chronic neck pain Chronic recurrent pancreatitis Congenital mitral regurgitation COPD (chronic obstructive pulmonary disease) Current every day smoker Diarrhea Dyslipidemia Encounter for long-term opiate analgesic use Encounter for long-term opiate analgesic use Epigastric pain Exocrine pancreatic insufficiency Fibromyalgia H/O adenomatous polyp of colon Heart palpitations Leg edema Mitral regurgitation Mitral valve prolapse Opioid contract exists Oral lesion Otitis media Panlobular emphysema Primary HSV infection of mouth Shortness of Breath Smoker SOB (shortness of breath) UTI (urinary tract infection), bacterial Vitamin D deficiency Yeast infection Surgical History H/O excision of mass H/O: hysterectomy History of Stacey fundoplication History of right salpingo-oophorectomy History of suburethral sling procedure S/P appendectomy S/P cholecystectomy S/P dilatation of esophageal stricture X2 Family History (Updated 03/08/20 @ 12:52 by TAMERA Gamino) Father Chronic kidney disease (CKD) Mother Cancer Denies family history of Anesthesia complication Bleeding disorder Social History (Updated 03/29/20 @ 17:49 by Eleazar Quevedo RN) Smoking and tobacco status: current every day smoker cigarettes Packs smoked per day: 0.5 Years cigarettes smoked: 40 Quit status (tobacco): considering quitting Second hand smoke exposure: Yes Smoking risk assessment/counseling performed?: Yes Alcohol intake: former Year of sobriety/quit date alcohol: 2006 Substance/Drug Use: never Lives independently: Yes Household members: spouse Housing: House Marital status: Current occupational status: disabled History of recent travel: No Current gender identity: Female Physical Exam Const: COMMON NORMALS: no acute distress, patient oriented x3 and healthy appearing HENMT: COMMON NORMALS: normocephalic and atraumatic HEAD & SCALP: normocephalic and atraumatic Eye: COMMON NORMALS: Equal, round and reactive pupils present and EOMs intact bilaterally PUPIL: Yes Equal, round and reactive pupils present Neck/C-Spine: COMMON NORMALS: full ROM and supple Chest: COMMONS NORMALS: normal inspection of the chest and normal palpation of entire chest wall Resp: COMMON NORMALS: normal respiratory effort, No retractions, No use of accessory muscles and clear to auscultation bilaterally AUSCULTATION: clear to auscultation bilaterally Cardio: COMMON NORMALS: regular rate, regular rhythm and No murmurs present (Cardio) RATE: regular rate RHYTHM: regular rhythm GI: COMMON NORMALS: Normal to inspection, nondistended, normoactive bowel sounds present, Soft to palpation, non-tender and no masses PALPATION: Yes Soft to palpation Extremity: COMMON NORMALS: normal to inspection and full ROM Neuro: COMMON NORMALS: patient oriented x3, moves all extremities and no focal motor deficits Psych: COMMON NORMALS: mental status grossly normal, Normal thought process present and cooperative THOUGHT PROCESS: Normal thought process present Skin: COMMON NORMALS: no rashes or lesions noted and no wounds GENERAL SKIN EXAM: no rashes or lesions noted Course Vital Signs: Vital signs: Vital Signs Temperature 97.9 F 03/29/20 17:41 Pulse Rate 82 03/29/20 19:18 Respiratory Rate 18 03/29/20 19:18 Blood Pressure 101/61 03/29/20 19:18 Pulse Oximetry 98 03/29/20 19:18 MDM - General Adult MDM Narrative: Medical decision making narrative: Patient presents here with chest pain dyspnea earlier today. She is worried about a blood clot. Her D- dimer here is negative and so is her troponin. She has had no pain or symptoms here. She has no signs of acute coronary syndrome and x-ray is normal. She is stable for discharge and is to follow-up with PCP in 3 to 5 days and return if worsening. Lab Data: Labs: Lab Results 03/29/20 03/29/20 03/29/20 Range/Units 18:05 18:20 18:20 WBC 12.4 H (4.0-10.0) 10^3/ uL RBC 4.26 (4.1-5.3) 10^6/u L Hgb 13.6 (11.5-15.3) g/dL Hct 40.5 (37.0-47.0) % MCV 95.1 (81-99) fL MCH 31.9 (28.0-34.0) pg MCHC 33.6 (30.0-36.0) g/dL RDW 12.2 (12.1-15.1) % Plt Count 336 (130-400) 10^3/c mm MPV 11.0 H (7.4-10.4) fL Neut % (Auto) 59.6 % Lymph % (Auto) 34.6 % [place] % (Auto) 4.2 % Eos % (Auto) 0.6 % Baso % (Auto) 0.7 % Neut # (Auto) 7.41 (1.8-7.7) 10^3/u L Lymph # (Auto) 4.3 (0.8-4.8) 10^3/u L [place] # (Auto) 0.5 (0.2-0.9) 10^3/u L Eos # (Auto) 0.1 (0.0-0.8) 10^3/u L Baso # (Auto) 0.1 (0.0-0.1) 10^3/u L Nucleated RBC % (a uto) 0 % Nucleated RBCs # 0.0 /100WBC D-Dimer 0.33 (0-0.59) ug/mIFE U Sodium 140 (136-145) mmol/L Potassium 4.1 (3.5-5.1) mmol/L Chloride 104 (98-107) mmol/L Carbon Dioxide 28 (22-29) mmol/L Anion Gap 12.1 (5-19) BUN 11 (6-20) mg/dL Creatinine 0.6 (0.5-0.9) mg/dL GFR Calculation 105.0 (90-130) mL/min Glucose 105 (65-115) mg/dL Calculated Osmolal ity 290 (285-295) mOsm/k g Calcium 9.2 (8.5-10.5) mg/dL Total Bilirubin 0.2 (0.15-1.2) mg/dL AST 12 (0-32) U/L ALT 10 (0-33) U/L Alkaline Phosphata se 58 (35-105) IU/L Troponin T Baselin e (0-10) ng/L NT-Pro-B Natriuret Pep 134 H (0-125) pg/mL Total Protein 6.7 (6.6-8.7) g/dL Albumin 3.9 (3.5-5.2) g/dL Globulin 2.8 (1.3-4.6) g/dL 03/29/20 Range/Units 18:20 WBC (4.0-10.0) 10^3/ uL RBC (4.1-5.3) 10^6/u L Hgb (11.5-15.3) g/dL Hct (37.0-47.0) % MCV (81-99) fL MCH (28.0-34.0) pg MCHC (30.0-36.0) g/dL RDW (12.1-15.1) % Plt Count (130-400) 10^3/c mm MPV (7.4-10.4) fL Neut % (Auto) % Lymph % (Auto) % [place] % (Auto) % Eos % (Auto) % Baso % (Auto) % Neut # (Auto) (1.8-7.7) 10^3/u L Lymph # (Auto) (0.8-4.8) 10^3/u L [place] # (Auto) (0.2-0.9) 10^3/u L Eos # (Auto) (0.0-0.8) 10^3/u L Baso # (Auto) (0.0-0.1) 10^3/u L Nucleated RBC % (a uto) % Nucleated RBCs # /100WBC D-Dimer (0-0.59) ug/mIFE U Sodium (136-145) mmol/L Potassium (3.5-5.1) mmol/L Chloride (98-107) mmol/L Carbon Dioxide (22-29) mmol/L Anion Gap (5-19) BUN (6-20) mg/dL Creatinine (0.5-0.9) mg/dL GFR Calculation (90-130) mL/min Glucose (65-115) mg/dL Calculated Osmolal ity (285-295) mOsm/k g Calcium (8.5-10.5) mg/dL Total Bilirubin (0.15-1.2) mg/dL AST (0-32) U/L ALT (0-33) U/L Alkaline Phosphata se (35-105) IU/L Troponin T Baselin e 6 (0-10) ng/L NT-Pro-B Natriuret Pep (0-125) pg/mL Total Protein (6.6-8.7) g/dL Albumin (3.5-5.2) g/dL Globulin (1.3-4.6) g/dL Imaging Data^: CXR: Attestation: I personally reviewed and interpreted this imaging study as follows: My impression: no acute abnormality EKG Data^: EKG 1: Attestation: I personally reviewed and interpreted this EKG as follows: EKG interpretation date: 03/29/20 EKG interpretation time: 17:56 Interpretation: nsr hr [address] or t wave abnormalities qrs 145 qtc 432 Discharge Plan Discharge Patient Disposition: Home Clinical Impression: Atypical chest pain Condition: Stable Prescriptions: No Action hydrocodone-acetaminophen 10-325 mg tablet 1 tab PO QID 30 Days Qty: 120 RF: 0 nitroglycerin [Nitrostat] 0.4 mg tablet, sublingual 0.4 mg SUBLINGUAL Q5M PRN (Reason: CHEST PAINS) RF: 0 fluticasone propionate [Flonase Allergy Relief] 50 mcg/actuation spray,suspension 1 spray intranasal Q12H Qty: 15.8 RF: 0 levocetirizine [Xyzal] 5 mg tablet 5 mg PO DAILY PRN (Reason: allergy symptoms) 30 Days Qty: 30 RF: 0 budesonide-formoterol [Symbicort] 80-4.5 mcg/actuation HFA aerosol inhaler 2 puff INHALATION Q12H 90 Days Qty: 10.2 RF: 3 amlodipine [Norvasc] 10 mg tablet 10 mg PO DAILY Qty: 30 RF: 5 alprazolam 1 mg tablet 0.5 mg PO BID PRN (Reason: Anxiety) RF: 0 losartan 25 mg tablet 25 mg PO DAILY@1000 RF: 0 losartan 50 mg tablet 50 mg PO DAILY@1000 RF: 0 Lipitor 40 mg tablet 40 mg PO DAILY@1800 RF: 0 prednisone 20 mg tablet 20 mg PO BID@1000,2200 RF: 0 Klonopin 0.5 mg tablet 0.5 mg PO BID@1000,2200 RF: 0 dicyclomine 20 mg tablet 20 mg PO QID@10,12,16,22 RF: 0 montelukast 10 mg tablet 10 mg PO DAILY@2200 RF: 0 furosemide [Lasix] 20 mg tablet 20 mg PO DAILY@1000 RF: 0 Advair Diskus 100-50 mcg/dose blister with device 1 inh INHALATION BID@1000,2200 RF: 0 Premarin 1.25 mg tablet 1.25 mg PO DAILY@1000 RF: 0 metoprolol tartrate 25 mg tablet 12.5 mg PO BID@1000,2200 RF: 0 ramelteon 8 mg tablet 8 mg PO BEDTIME@2200 RF: 0 Dexilant 60 mg capsule,biphase delayed releas 60 mg PO DAILY@1000 RF: 0 Discharge Orders: Discharge ED (Routine); Ordered 03/29/20 Ordered By: Natalio Salgado Referrals: Ricco Mendenhall MD [Primary Care Provider] - 1-3 days Discharge Diet: Advance as tolerated Discharge Activity: Resume usual activity Patient Instructions: Chest Pain (ED) Coding Level of Care Code ED Child Care Leader for [facility] Fwd Exam Comprehensive
[2020-03-29 18:55] LABS: D Dimer 0.33 ug/mIFEU (0-0.59)
[2020-03-29 19:09] LABS: Alanine Aminotransferase 10 U/L (0-33); Albumin Level 3.9 g/dL (3.5-5.2); Alkaline Phosphatase 58 IU/L (35-105); Anion Gap 12.1 (5-19); Aspartate Amino Transferase 12 U/L (0-32); Blood Urea Nitrogen 11 mg/dL (6-20); Calcium 9.2 mg/dL (8.5-10.5); Carbon Dioxide 28 mmol/L (22-29); Chloride 104 mmol/L (98-107); Creatinine Clr Calc Pharmacy 113.5083; Globulin 2.8 g/dL (1.3-4.6); Glucose 105 mg/dL (65-115); NT Pro B Type Natriuretic Pept 134 pg/mL (0-125); Osmolality Calculated 290 mOsm/kg (285-295); Potassium 4.1 mmol/L (3.5-5.1); Sodium 140 mmol/L (136-145); Total Bilirubin 0.2 mg/dL (0.15-1.2); Total Protein 6.7 g/dL (6.6-8.7)
[2020-03-29 19:18] VITALS: BP 101/61; PULSE 82; RESP 18; O2SAT 98
[2020-03-29 19:49] LABS: Troponin(5th) Baseline 6 ng/L (0-10)
[2020-03-29 19:53] LABS: Basophils # 0.1 10^3/uL (0.0-0.1); Basophils % 0.7 %; Eosinophils # 0.1 10^3/uL (0.0-0.8); Eosinophils % 0.6 %; Hematocrit 40.5 % (37.0-47.0); Hemoglobin 13.6 g/dL (11.5-15.3); Lymphocytes # 4.3 10^3/uL (0.8-4.8); Lymphocytes % 34.6 %; Mean Corpuscular HGB Conc 33.6 g/dL (30.0-36.0); Mean Corpuscular Hemoglobin 31.9 pg (28.0-34.0); Mean Corpuscular Volume 95.1 fL (81-99); Monocytes # 0.5 10^3/uL (0.2-0.9); Monocytes % 4.2 %; Neutrophils # 7.41 10^3/uL (1.8-7.7); Neutrophils % 59.6 %; Nucleated Red Blood Cells % 0 %; Platelet Count 336 10^3/cmm (130-400); Red Blood Count 4.26 10^6/uL (4.1-5.3); Red Cell Distribution Width 12.2 % (12.1-15.1); White Blood Count 12.4 10^3/uL (4.0-10.0)
[2020-03-29 20:23] VITALS: BP 125/98; PULSE 86; RESP 18; O2SAT 96
== END 2020-03-29 20:23 | disposition home or self-care (01) ==
PROVIDERS: Emergency Provider Emergency Medicine; PCP Family Medicine
DX: R07.89 Other chest pain (principal); J44.9 Chronic obstructive pulmonary disease, unspecified; I10 Essential (primary) hypertension; Z86.19 Personal history of other infectious and parasitic diseases; E78.5 Hyperlipidemia, unspecified; F17.210 Nicotine dependence, cigarettes, uncomplicated
CPT/HCPCS: 12345; 71045; 80053; 83880; 84484; 85025; 85378; 93005; 99283

== ENCOUNTER 2020-04-12 14:06 | Outpatient (CLI) | payer MEDICARE, MEDICAID, SELFPAY ==
--- NOTE | 2020-04-12 15:00 | MM_ITS ---
WS: [id number] BILATERAL DIGITAL SCREENING MAMMOGRAPHY WITH CAD CLINICAL INFORMATION: Z12.31 - Encounter for screening mammogram for malignant neoplasm of breast HISTORY: Screening mammogram. No current complaints. COMPARISON: TECHNIQUE: Bilateral CC and MLO views. FINDINGS: Scattered fibroglandular densities bilaterally. No suspicious focal mass, asymmetry, calcifications, or architectural distortion. No evidence of malignancy. MM/[place] [id number] IMPRESSION: BI-RADS: 1-Negative FOLLOW UP: 1 Year Follow-up Recommend return to annual screening mammography.
== END 2020-04-12 14:07 | disposition home or self-care (01) ==
PROVIDERS: PCP Family Medicine; Visit Provider Nurse Practitioner Family
DX: Z12.31 Encounter for screening mammogram for malignant neoplasm of breast (principal)
CPT/HCPCS: 77067

== ENCOUNTER → 2020-04-18 12:53 | Outpatient (BNVA) | payer MEDICARE, MEDICAID, SELFPAY | PROVIDERS: PCP Family Medicine; Visit Provider Nurse Practitioner | DX: R10.84 Generalized abdominal pain (principal); M79.7 Fibromyalgia; K86.1 Other chronic pancreatitis; F17.210 Nicotine dependence, cigarettes, uncomplicated; Z79.891 Long term (current) use of opiate analgesic | CPT/HCPCS: 99213 ==

== ENCOUNTER 2020-04-24 09:09 | Outpatient (CLI) | payer MEDICARE, MEDICAID, SELFPAY ==
[2020-04-24 09:25] VITALS: BMI 22.8
--- NOTE | 2020-04-24 09:25 | ECG_ITS ---
[facility] Test Date: 2020-04-24 Pat Name: Otilia Reynaga Department: Room: Gender: Female Gis Analyst Developer: : 1965 Requested By: Brenna Avendano Order Number: [id number] Bryan MD: Brenna Avendano M.D. Interpretive Statements NAME OF STUDY: LEXISCAN SESTAMIBI STRESS TEST INDICATION: Chest Pain, PROCEDURE: At the baseline, the EKG revealed sinus bradycardia with a left bundle branch block pattern.. The baseline blood pressure was 111/83 mm Hg with a heart rate of 55 beats/min. Lexiscan was infused over a period of 20 seconds. A total of 0.4 milligrams of Lexiscan was infused. The stress phase was continued for a total of 5 minutes. Heart rate at the end of the stress phase was 68 with a blood pressure 143/81. The EKG at the peak infusion revealed no significant changes. Sestamibi was injected 20 seconds after the Lexiscan infusion. Blood pressure at the end of the recovery phase was 91/60 with a heart rate of 56 per minute. CONCLUSION: 1. No significant EKG changes with the LexiScan infusion 2. No LexiScan induced chest pain or cardiac arrhythmia 3. Normal blood pressure and heart rate response 4. Sestamibi/sestamibi perfusion scan pending; see separate report. Electronically Signed On 04-27-2020 12:19:20 BLADE CHANGER by Brenna Avendano M.D. [email or web address]
--- NOTE | 2020-04-24 09:26 | NMCV_ITS ---
NM mateus perf SPECT r/s* [id number] Otilia Reynaga Age: 54 Gender: F : 1965 Exam Date: 04/24/2020 10:44 Ordering Phys: Brenna Avendano MD ([email or web address]) Technologist: ROCIO Esparza Exam Location: [facility] Indications: CHEST PAIN STRESS TEST Please see separate stress test report in [facility] for full findings IMAGE PROTOCOL Rest/Stress 1 Lexiscan Day Radiopharmaceutical Dose (mCi) Administration Site Administered by Rest: Tc-99m 11.0 IV ROCIO Esparza Sestamibi Stress:Tc-99m 32.8 IV ROCIO Ordonez Sestamibi Rest: 24-Apr-2020 60 Discovery 630 Stress: 24-Apr-2020 30 Discovery 630 0.4mg Lexiscan. Images obtained in supine and prone position. SPECT RESULTS Technical Quality: Excellent Raw Data Analysis: Normal Image Corrections: No attenuation or motion correction applied Summed Stress Score: 2 Summed Rest Score: 0 Summed Difference Score: 2 PERFUSION FINDINGS Small areas of slightly decreased uptake in the apical lateral and apical septal regions with some reversibility. FUNCTIONAL RESULTS (calculated via Gated SPECT) Stress Image LV EF (%): 73 Stress EDV (mL):95 TID: 0.95 Stress ESV (mL):26 FUNCTIONAL FINDINGS: Segmental wall motion analysis revealed no gross wall motion normalities. IMPRESSIONS 1. Myocardial perfusion imaging revealing very small areas of reversible perfusion defects suggesting ischemia in the distribution of the distal circumflex/left anterior descending artery . 2. Normal LV ejection fraction 73%. 3. LV wall motion analysis revealing no gross wall motion normalities. 4. Normal LV volume. No similar previous studies are available for comparison Dr Brenna Avendano MD [facility] (Electronically Signed) Final Date: 24 April 2020 13:40 S
[2020-04-24] MEDS: regadenoson 0.4 Mg/5 ml Syringe IVP (11:13)
[2020-04-24 11:27] VITALS: BP 117/70; PULSE 57
== END 2020-04-24 09:10 | disposition home or self-care (01) ==
LOC: CDL 09:10
PROVIDERS: PCP Family Medicine; Visit Provider Internal Medicine Cardiovascular Disease
DX: R07.9 Chest pain, unspecified (principal)
CPT/HCPCS: 78452; 93017; A9500; J2785

== ENCOUNTER → 2020-05-03 10:27 | Outpatient (BNVA) | payer MEDICARE, MEDICAID, SELFPAY | PROVIDERS: PCP Family Medicine; Visit Provider Internal Medicine Cardiovascular Disease | DX: R00.2 Palpitations (principal); R06.02 Shortness of breath; R07.9 Chest pain, unspecified | CPT/HCPCS: 80048; 85025; 85610; 87635 ==

== ENCOUNTER 2020-05-08 07:13 | Day surgery (SDC) | payer MEDICARE, MEDICAID, SELFPAY ==
[2020-05-08] VITALS (16 sets, daily range): BP systolic 87–117; BP diastolic 50–76; PULSE 46–64; RESP 9–18; O2SAT 93–99; BMI 25.0
--- NOTE | 2020-05-08 06:50 | XACV_ITS ---
Ht: 173 cm Wt: 75 kg BSA: 1.90 m2 Gender: Female : 1965 Any Known Allergies: Other Exam Priority: Routine Procedure(s): Procedure Description: Diagnostic procedure Diagnostic Cath Status: Elective Diagnostic Findings * No significant disease noted in the Left Main, LAD, Circumflex, or RCA coronary arteries. * Coronary angiography shows right dominance. * Left main is an extremely short medium caliber vessel which bifurcates to left anterior descending and left circumflex artery. No significant stenotic lesions were noted. * The left anterior descending artery is a medium caliber vessel which appears to wrap around the left ventricular apex. No significant stenotic lesions. * The left circumflex artery is a medium caliber dominant vessel which was also found to have no significant stenotic lesions. * The right coronary artery is a small to medium caliber nondominant vessel with no significant stenotic lesions. Conclusions 1. No significant disease noted in the Left Main, LAD, Circumflex, or RCA coronary arteries. 2. Normal left ventricular systolic function. Ejection fraction of 50%. 3. This is a 54-year-old white female with a history of hypertension, tachybradycardia arrhythmia, mitral regurgitation, left bundle branch block by EKG, presented with increasing episodes of chest pain and shortness of breath. She had a myocardial perfusion imaging which revealed some areas of fixed defects with no significant reversible defects. Because of her ongoing symptoms with recent worsening, for further evaluation of her coronary status, a cardiac catheterization was recommended. Patient underwent left heart catheterization with left and right coronary angiogram and LV angiogram today. The findings are as follows. 4. Patient has a left dominant coronary circulation. No significant obstructive coronary artery disease. She has markedly elevated LVEDP, suggestive of left ventricular diastolic dysfunction. The EDP was 26 mmHg. LV ejection fraction was around 50%. Mild hypokinesia of the LV apex was noted. The mitral regurgitation was found to be mild.. Diagnostic RX Recommendation: medical therapy and/or counseling LV EDP: 26 mmHg Ventriculography Ejection Fraction: 50.0 % Left Ventriculography Findings: * LV gram was performed in the SALAS projection. The LV cavity appears to be of normal size. Mild hypokinesia of the LV apex was noted. No filling defects were seen. No significant mitral valve prolapse . Mild mitral regurgitation was noted. Pressures Phase:Rest AO : 110 / 63 ( 83 ) @ 2:38:00 AM 114 / 90 ( 86 ) @ 2:49:00 AM 129 / 65 ( 89 ) @ 2:49:00 AM LV : 112 / 16 / @ 2:47:00 AM 120 / 21 / @ 2:48:00 AM 116 / 15 / @ 2:49:00 AM Valves Phase:DefaultPhase AV : 9.0 @ 8:54:49 AM 9.0 @ 8:54:49 AM AV Mean Gradient: 13.0 @ 8:54:49 AM 13.0 @ 8:54:49 AM Clinical Evaluation EBL: 5mL-10mL Procedural Details Procedure Consent Obtained. Pre-Procedure Time Out. Identified patient by full name and date of as verbalized by the patient/guarantor. Does the consent match the physician's order: Yes. Accurate & Complete Informed Consent: Yes. Inpatient/Outpatient History & Physical on Chart: Yes. If H&P is completed, is and addenduem needed: No; If yes, is the addendum complete: N/A. Visualize and Verify Site with Patient/Guarantor: N/A. Relevant Radiology Images available: N/A. Pre-op teaching completed and patient verbalized understanding. The risks, benefits, and alternatives of sedation and/or procedure were discussed by physician. The patient agrees to continue. Physician notified. Baseline sample Acquired. HR: 86 BPM. right radial was prepped with chloroprep then draped in the usual sterile fashion. bilateral groins was prepped with chloroprep then draped in the usual sterile fashion. Procedure started. [facility] Clinical Fraility Score: 4: Vulnerable. Logging Contractor Indications: Cardiac Arrhythmia. Chest Pain Symptom Assessment: Atypical Angina. Cardiovascular Instability: No. Correct patient, site and procedure confirmed by cath team. PERRLA. Strong, equal hand grounds maintenance worker bilaterally. Lungs clear x 5 lobes. IV Site on Arrival: 22 gauge in the left forearm. IV Fluids: 0.9% NaCl at KVO. 0 mL infused prior to labor training manager. Pre Procedural Pulses: bilateral dorsalis pedis was 1+. Pre Procedural Pulses: bilateral posterior tibial was 1+. Oxygen started at 2liters/min via nasal canula. Physician arrived. Equipment: 6F - Radial. Cardiac Cath Pack. ACIST Manifold Kit Model BT 2000. Heparinized Saline (2 units/mL), 1000 mL bag. Physician scrubbed in. Immediate Pre-Procedure Time Out. Correct Patient: Yes; Correct Procedure: Yes; Correct Site: Yes; Correct Patient Position: Yes; Correct Supplies: Yes; Dried Flammable Prep: Yes; Blood Products Available: N/A;. Lidocaine 1% infiltrated to the right radial. Arterial access obtained. 250 ml NS bolus given by Hank Chin RN, BARREL RIFLER BROACH per physician order. A 5 faroese Fabio catheter in over the exchange wire. Multiple views taken of left coronary artery. Catheter redirected to the RCA. Catheter removed over the exchange wire. A 5 faroese JR4 catheter in over wire. Catheter removed over the exchange wire. A 5 faroese Angled Pig catheter in over wire. EDP Sample taken: LV 112/16,26; HR: 78 BPM; SpO2: 94%. LV gram performed in SALAS @ 10 mL/second for a total of 30 mL. EDP Sample taken: LV 120/21,31; HR: 77 BPM; SpO2: 94%. Pullback taken: LV 116/15,27; AO 114/90(86); Mean: 13mmHg, Peak to Peak: 9mmHg, SEP: 16sec/min; HR: 71 BPM; SpO2: 93%. Catheter removed over the exchange wire. Physician scrubbed out. A TR Band was successful obtaining hemostatsis at the Right Radial artery insertion site. Contrast type used: Omnipaque 300 mgI/mL, 500 mL bottle. Post-op diagnosis: LVDD. Complications: none. Estimated blood loss: 5mL-10mL. Post Procedure: Pulses reassessed and unchanged. PERRLA. Strong, equal hand grounds maintenance worker bilaterally. No VTE prophylaxis required. Medication's Wasted: Lidocaine 1% = 18 mL. Medication's Wasted: Nitro = 49.9 mg. Medication's Wasted: Heparin = 1000 units. Total IV fluids: 250 mL. Procedure completed. Patient transferred by wheelchair to CPRU. Vital chart was stopped. Access Site Site: Right Radial artery Sheath Size: 6 Fr Hemostasis Method: TR Band Hemostasis Success: Successful Procedure Medications Start: 8:26 AM Stop: 8:26 AM Medication: Versed Amount: 1 mg Route: I.V. Start: 8:26 AM Stop: 8:26 AM Medication: Fentanyl Amount: 50 mcg Route: I.V. Start: 8:28 AM Stop: 8:28 AM Medication: Versed Amount: 1 mg Route: I.V. Start: 8:31 AM Stop: 8:31 AM Medication: Versed Amount: 1 mg Route: I.V. Start: 8:31 AM Stop: 8:31 AM Medication: Fentanyl Amount: 50 mcg Route: I.V. Start: 8:33 AM Stop: 8:33 AM Medication: Versed Amount: 1 mg Route: I.V. Start: 8:35 AM Stop: 8:35 AM Medication: Verapamil Amount: 5 mg Route: I.A. Start: 8:38 AM Stop: 8:38 AM Medication: Heparin Amount: 5000 units Route: I.V. Start: 8:41 AM Stop: 8:41 AM Medication: Versed Amount: 1 mg Route: I.V. Start: 8:41 AM Stop: 8:41 AM Medication: Nitrogylcerin Amount: 100 mcg Route: I.A. Start: 8:43 AM Stop: 8:43 AM Medication: Fentanyl Amount: 50 mcg Route: I.V. Start: 8:28 AM Stop: 8:28 AM Medication: Fentanyl Amount: 50 mcg Route: I.V. Start: 8:37 AM Stop: 8:37 AM Medication: Versed Amount: 1 mg Route: I.V. I, the attending physician, have reviewed and verified all procedure medications. Yes, all medications given per verbal order History/Risk Factors Hypertension: Yes Dyslipidemia: Yes Peripheral Arterial Disease (PAD): No Myocardial Infarction (NV): No Obesity: No Renal Disease: No Tobacco Use: Current/Recent(w/in 1 year) Prior Interventions PCI: No CABG: No Valve Surgery: No Report Signatures Finalized by Dr Brenna Avendano MD [facility] on 05/08/2020 10:24 AM
[2020-05-08] MEDS: diphenhydrAMINE 50 mg Capsule PO (07:44)
--- NOTE | 2020-05-08 08:25 | W.PM.OPSUD ---
Surgery/Procedure H&P Update DATE OF PROCEDURE: May 08, 2020 DATE H&P PERFORMED: 04/18/20 H&P UPDATE INFORMATION: I have reviewed H&P completed within last 30 days, I have examined patient prior to procedure and No changes to prior documentation PREOP DIAGNOSIS: Possible ASHD PRIMARY INDICATION FOR PROCEDURE: Chest pain, abnormal EKG and perfusion scan PLANNED PROCEDURE: Operation Date: 05/08/20 08:30 Proposed Procedures p Left Cardiac Catheterization [id number] R94.39(Left) - Brenna Avendano MD PATIENT REASSESSED PRIOR TO SEDATION, WITH NO CHANGE NOTED: Yes PHYSICAL EXAM: alert, oriented x 3, clear to auscultation bilaterally and regular rate & rhythm OTHER PERTINENT EXAM FINDINGS: Alert and oriented x3 ,heart sounds are normal. No S3 or S4. Lungs are clear. Good radial pulses AIRWAY EVAL/ANESTHESIA PLAN: normal airway, see other exam findings, ASA II, Monitored Anesthesia, Local Anesthesia, Risks, benefits & alternatives of sedation and/or procedure discussed and Patient agrees to continue as planned
--- NOTE | 2020-05-08 09:00 | PC.NURSE ---
[facility] pt transferred from wheelchair to bed with no incident. pt reminded on restrictions on right wrist and verbalized understanding. pt cold and was given several blankets to warm up with. pt complains of a slight discomfort on her right wrist where tr band is in place. tr band in place with no hematoma or blood leaking. explained to her that is normal and as the air is deflated it should get better. right radial pulse palpable. pt placed on monitor to collect vitals per protocol. call light given to patient and lights put on low. pt stated she will rest.
== END 2020-05-08 12:53 | disposition home or self-care (01) ==
PROVIDERS: PCP Nurse Practitioner Family; Visit Provider Internal Medicine Cardiovascular Disease
DX: R94.39 Abnormal result of other cardiovascular function study (principal); R07.9 Chest pain, unspecified; I10 Essential (primary) hypertension; E78.5 Hyperlipidemia, unspecified; F17.210 Nicotine dependence, cigarettes, uncomplicated
CPT/HCPCS: 12345; 36415; 93452; C1769; C1887; C1894; J1644; J2250; J3010; J3490; J7030; Q0163; Q9967

== ENCOUNTER → 2020-06-14 13:03 | Outpatient (BNVA) | payer MEDICARE, MEDICAID, SELFPAY | PROVIDERS: PCP Family Medicine; Visit Provider Nurse Practitioner | DX: R10.84 Generalized abdominal pain (principal); K86.1 Other chronic pancreatitis; R10.13 Epigastric pain; R10.12 Left upper quadrant pain; F41.9 Anxiety disorder, unspecified; F32.9 Major depressive disorder, single episode, unspecified; F17.210 Nicotine dependence, cigarettes, uncomplicated; Z79.891 Long term (current) use of opiate analgesic; Z71.6 Tobacco abuse counseling | CPT/HCPCS: 99215 ==

== ENCOUNTER → 2020-07-06 13:59 | Outpatient (BNVA) | payer MEDICARE, MEDICAID, SELFPAY | PROVIDERS: PCP Family Medicine; Visit Provider Nurse Practitioner | DX: R10.13 Epigastric pain (principal); F17.200 Nicotine dependence, unspecified, uncomplicated; Z79.891 Long term (current) use of opiate analgesic | CPT/HCPCS: 99213 ==

== ENCOUNTER → 2020-09-18 13:15 | Outpatient (BNVA) | payer MEDICARE, MEDICAID, SELFPAY | PROVIDERS: PCP Family Medicine; Visit Provider Anesthesiology | DX: G89.29 Other chronic pain (principal); M54.9 Dorsalgia, unspecified; K86.1 Other chronic pancreatitis; R10.12 Left upper quadrant pain; K86.89 Other specified diseases of pancreas; F17.210 Nicotine dependence, cigarettes, uncomplicated; Z79.891 Long term (current) use of opiate analgesic | CPT/HCPCS: 99214 ==

== ENCOUNTER → 2020-12-13 12:48 | Outpatient (BNVA) | payer MEDICARE, MEDICAID, SELFPAY | PROVIDERS: PCP Family Medicine; Visit Provider Nurse Practitioner | DX: G89.29 Other chronic pain (principal); M54.5 Low back pain; K86.89 Other specified diseases of pancreas; Z79.891 Long term (current) use of opiate analgesic | CPT/HCPCS: 99213 ==

== ENCOUNTER → 2021-02-06 13:14 | Outpatient (BNVA) | payer MEDICARE, MEDICAID, SELFPAY | PROVIDERS: PCP Family Medicine; Visit Provider Anesthesiology | DX: G89.29 Other chronic pain (principal); K86.89 Other specified diseases of pancreas; R10.84 Generalized abdominal pain; F17.210 Nicotine dependence, cigarettes, uncomplicated; M54.50 Low back pain, unspecified; Z79.891 Long term (current) use of opiate analgesic; Z71.6 Tobacco abuse counseling | CPT/HCPCS: 99214 ==

== ENCOUNTER → 2021-02-27 11:48 | Outpatient (BNVA) | payer MEDICARE, MEDICAID, SELFPAY | PROVIDERS: PCP Family Medicine; Visit Provider Nurse Practitioner Family | DX: R82.90 Unspecified abnormal findings in urine (principal) | CPT/HCPCS: 81003 ==

== ENCOUNTER → 2021-04-10 13:24 | Outpatient (BNVA) | payer MEDICARE, MEDICAID, SELFPAY | PROVIDERS: PCP Family Medicine; Visit Provider Anesthesiology | DX: G89.29 Other chronic pain (principal); K86.89 Other specified diseases of pancreas; K86.81 Exocrine pancreatic insufficiency; K86.1 Other chronic pancreatitis; M54.50 Low back pain, unspecified; F17.210 Nicotine dependence, cigarettes, uncomplicated; Z79.891 Long term (current) use of opiate analgesic | CPT/HCPCS: 99214 ==

== ENCOUNTER 2021-05-07 14:50 | Outpatient (CLI) | payer MEDICARE, MEDICAID, SELFPAY ==
[2021-05-07 16:34] LABS: Basophils # 0.1 10^3/uL (0.0-0.1); Basophils % 1.4 %; Eosinophils # 0.1 10^3/uL (0.0-0.8); Eosinophils % 0.8 %; Hematocrit 41.6 % (37.0-47.0); Hemoglobin 13.9 g/dL (11.5-15.3); Mean Corpuscular HGB Conc 33.4 g/dL (30.0-36.0); Mean Corpuscular Hemoglobin 31.1 pg (28.0-34.0); Mean Corpuscular Volume 93.1 fl (81-99); Mean Platelet Volume 9.8 fL (7.4-10.4); Monocytes # 0.4 10^3/uL (0.2-0.9); Monocytes % 4.3 %; Neutrophils # 3.78 10^3/uL (1.8-7.7); Neutrophils % 45.4 %; Nucleated Red Blood Cells % 0 %; Platelet Count 379 10^3/cmm (130-400); Red Blood Count 4.47 10^6/uL (4.1-5.3); Red Cell Distribution Width 12.6 % (12.1-15.1); White Blood Count 8.4 10^3/uL (4.0-10.0)
[2021-05-07 16:59] LABS: Erythrocyte Sedimentation Rate 16 mm/hr (0-15)
[2021-05-07 17:35] LABS: Alanine Aminotransferase 11 U/L (0-33); Albumin Level 4.8 g/dL (3.5-5.2); Alkaline Phosphatase 75 IU/L (35-105); Anion Gap 13.8 (5-19); Aspartate Amino Transferase 16 U/L (0-32); Blood Urea Nitrogen 10 mg/dL (6-20); Calcium 9.3 mg/dL (8.5-10.5); Carbon Dioxide 30 mmol/L (22-29); Chloride 100 mmol/L (98-107); Globulin 2.6 g/dL (1.3-4.6); Glomerular Filtration Rate 104.6 mL/min (90-130); Glucose 77 mg/dL (65-115); Lactate Dehydrogenase 231 U/L (135-214); Lipase 24 U/L (13-60); Osmolality Calculated 288 mOsm/kg (285-295); Potassium 3.8 mmol/L (3.5-5.1); Sodium 140 mmol/L (136-145); Total Bilirubin 0.2 mg/dL (0.15-1.2); Total Protein 7.4 g/dL (6.6-8.7)
[2021-05-07 18:46] LABS: Iron 94 ug/dL (37-145); Percent Saturation 29.4 % (20-50); Total Iron Binding Capacity 319 mcg/dl; Unsaturated Iron Binding 225 ug/dL (112-347)
[2021-05-07 18:59] LABS: Folate Level 5.8 ng/mL (4.8-37.3)
[2021-05-07 19:00] LABS: Vitamin B12 438 pg/mL (232-1245)
--- NOTE | 2021-05-11 13:19 | ONC FU_ITS ---
Dr. Cevallos Patient Follow-Up Note Patient: Otilia Reynaga Unit #: [id number]: 1965 Dicatated By: Vidal Cevallos M.D.Date of Visit:May 07, 2021 Onc Med Follow-up/Prog Note Chief Complaint: Mediastinal lymphadenopathy. History of Present Illness: This is a 55 year-old woman with mediastinal lymphadenopathy. I had seen her on 07/10/2015 in regard to mediastinal lymphadenopathy. This was first discovered on a chest CT scan in November 2014. At the time, she was having shortness of breath, cough, and rib pain. The CT showed mild hyperinflation with minimal peripheral bullous change near the diaphragm. There were no pulmonary infiltrates or mass lesions identified. Also noted was an 8 mm pretracheal lymph node and a couple of subcentimeter aortopulmonary window lymph nodes. She had a repeat chest CT without IV contrast on 06/01/2015. That study showed an isolated lymph node in the superior mediastinum measuring 1.3 cm. It was otherwise reported to be unremarkable. Her evaluation in June 2015 included CBC showing hemoglobin 14.1 g, white blood cell count 9200, and platelet count 253,000. Sedimentation rate was normal at 7 mm/hour. CRP was normal at 0.399 mg/dL. Comprehensive metabolic profile was unremarkable. B12 and TSH levels were normal. Bilateral mammograms prior to that visit were negative. She had multiple complaints including pain in the chest and epigastric area, which she attributed to esophageal spasms. She complained of severe fatigue and she reported decreased appetite and weight loss in the range of 20 pounds. Given the laboratory findings, I had just recommended observation/expectant management. A follow-up CT scan on 09/28/2015 showed hyperexpanded lungs with centrilobular emphysematous changes primarily in the upper lobes. Right paratracheal and AP window lymph nodes were noted to be stable, maximum diameter 1 cm. There were no new mediastinal lymph nodes, and there was no hilar, axillary, or supraclavicular lymphadenopathy noted. In December 2015 she was seen in the emergency room with abdominal pain. This was thought to be due to a stomach bug . Contrast-enhanced CT of the abdomen showed no acute findings. Surveillance chest CT on 10/10/2016 showed evidence of chronic emphysema with stable nonenlarged right paratracheal and AP window lymph nodes. There was no new mediastinal or hilar adenopathy noted. The spleen and included portions of liver appeared normal. She continued on expectant management. A noncontrast chest CT on 12/04/2017 showed mild chronic emphysema. There were no acute pulmonary infiltrates or mass lesions. Prominent AP window and paratracheal lymph nodes appeared unchanged. X-ray of the lumbar spine at that time showed no significant abnormalities. She underwent EGD and colonoscopy by Dr. House on 02/12/2017. The EGD showed severe, chronic gastritis but normal appearing esophagus. The colonoscopy showed no abnormal findings. She was given a prescription for Dexilant. As of her follow-up visit with [place] January 2018, she appeared stable clinically. On a repeat chest CT on 10/15/2018 the previously reported prominent lymph nodes appeared to have significantly decreased in size. During her further follow-up with Dr. 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 She had further GI evaluation through [facility] in [place], including ERCP. She apparently had a plexus block, but that did not help the pain significantly. She apparently also underwent placement of biliary stent, which she did not tolerate. On 01/03/2020 she was confirmed to have COVID-19 virus infection. She was managed as an outpatient. She had a follow-up visit with Dr. Mendenhall on 01/23/2020. At that time she had multiple complaints, including chest pain and shortness of breath, but she was not overtly hypoxic. Her CBC showed normal hemoglobin at 13.9 g with white blood cell count 11,600 and platelet count 289,000. Sed rate was normal at 16 mm/hour. Her comprehensive metabolic profile was unremarkable. Renal function was normal with BUN 13 and creatinine 0.7 mg/dL, and the liver enzymes were normal. Her CT pulmonary angiogram on 01/24/2020 showed no evidence for pulmonary embolism. There was slight atelectasis noted in the lung bases. There was no acute pulmonary infiltrate. A few subcentimeter noncalcified nodules were noted, measuring up to 3.5 mm. There were slightly enlarged mediastinal lymph nodes, the largest measuring 11 mm, felt to be nonspecific but most likely reactive. AP window lymph nodes also noted to be slightly prominent. In the absence of any evidence of malignancy, she was recommended to just continue expectant management. Her other medical illnesses including COPD, GERD, esophageal spasm, irritable bowel syndrome, and degenerative arthritis. She has a history of hepatitis C, genotype 1a, initially diagnosed at age 28. She completed treatment with pegylated interferon and ribavirin in 2007. She also has a history of ADHD with chronic anxiety, and she has a history of depression. She has a history of smoking 1 pack of cigarettes daily. INTERIM HISTORY: She is seen for a follow-up visit. She continues to have numerous complaints. She does not have enough energy, though she is able to work part-time. Her ECOG score is 1. She says she feels hungry, but her intake is limited, as she has postprandial nausea, sometimes with vomiting. She has had a significant weight loss since her visit in January 2020, in the range of 40 pounds. She has not had fever. She has been having night sweating pretty often since she has been off Premarin. She has ongoing issues with the chronic pancreatitis, though she has been getting benefit with celiac nerve blocks. The most recent was in July 2020. She indicates that her follow-up ultrasound studies have shown mild to moderate pancreatitis involving her entire pancreas. She says her pain is starting to come back now. She has allergy related sinus symptoms. She has been having difficulty swallowing, and she is due to have an esophageal dilatation procedure on . She has a little bit of cough, mainly in the mornings. She has some shortness of breath, but her breathing overall is better. She has chest pressure associated with the esophageal stricture. Her cardiac catheterization in April 2020 showed no significant coronary artery obstruction. Her bowel and bladder function remain adequate. She says she has joint pain everywhere, especially the shoulders, knees, and hands. She also has neck and back pain. She has been having frontal headaches and she has orthostatic lightheadedness. She has some numbness in her left arm. She has anxiety/depression. It has been managed adequately with medication, but she also now complains that her memory is getting terrible. Medications: Albuterol Sulfate 2 Puff(s) (of 108 (90 base) mcg/act) Aerosol Powder, Breath Activated Inhalation q 6 hours, Amitriptyline HCl (50 mg) Tablet Oral at bedtime, amLODIPine Besylate (10 mg) Tablet Oral daily, Budesonide-Formoterol Fumarate 1 Puff(s) (of 80-4.5 mcg/act) Aerosol Inhalation q 12 hours, buPROPion HCl 1 Tablet (of 100 mg) Oral b.i.d., Cyclobenzaprine HCl Tablet Oral b.i.d., Dexilant 1 Tablet (of 60 mg) Capsule Delayed Release Oral daily, Dicyclomine HCl 1 Tablet (of 20 mg) Oral four times a day, Hydrocodone-Acetaminophen 1 Tablet (of 7.5-325 mg) Oral four times a day, Isosorbide Mononitrate (10 mg) Tablet Oral daily, LORazepam (1 mg) Tablet Oral at bedtime PRN, Nitroglycerin (0.4 mg) Tablet, sublingual Sublingual Take as Directed, Premarin (1.25 mg) Tablet Oral daily, Promethazine HCl (25 mg) Tablet Oral Take as Directed, Xyzal (5 mg) Tablet Oral daily PRN Allergies: Sulfabenzamide Vital Signs: Performed on May 07, 2021 15:30 Height - 68.50 in Weight - 124.4 lbs (LOW) BSA - 1.68 sq.m BMI - 18.64 Temperature - 97.6 F (LOW) Pulse - 96 /min Respiration - 16 /min BP - 125/83 mm(hg) O2 Sat - 98 % Pain - 4 Fatigue - 8 Physical Examination: Constitutional - She appears somewhat weak generally, Eyes - Sclerae nonicteric. Conjunctivae clear, ENMT - No lesions noted in the oral cavity, Hematologic/Lymphatic - No cervical, clavicular, or axillary adenopathy, Respiratory - Lungs sound clear, Cardiovascular - Heart rhythm is regular. There is no murmur, gallop, or rub noted, Abdomen - Soft. There is mild tenderness in the upper abdomen. Liver and spleen are not enlarged. There is no abdominal mass or ascites noted and there is no inguinal adenopathy, Extremities - No edema, Integumentary - There are multiple small subcutaneous nodules palpable over the lower anterior rib cage bilaterally, Neurologic - No focal neurologic deficits noted. Problem List: 1. Mildly enlarged superior mediastinal lymph node by chest CT in May 2015. 2. She has had CT evidence of underlying COPD. 3. She has had multiple chronic GI complaints and, in addition to esophageal spasms, and she was determined to have exocrine pancreatic insufficiency. 4. She has a history of treated hepatitis C, genotype 1a. 5. Irritable bowel syndrome. 6. Mitral valve prolapse. 7. GERD. 8. History of polysubstance abuse, in remission. 9. Nicotine dependence (cigarettes). 10. Degenerative arthritis. 11. History of ADHD with chronic anxiety. 12. History of depression. 13. History of COVID-19 virus infection in December 2019. Problems Addressed with this Encounter and Plan: Patient with mildly enlarged superior mediastinal lymph node by chest CT in May 2015. It appears to be most likely reactive, as it has remained stable by surveillance CT scan. During follow-up she has continued to have multiple complaints. Thus far there has been no evidence for underlying malignancy, but she has now had a very significant weight loss, and she does need to be reevaluated. As such, she will have laboratory studies today to include CBC, comprehensive metabolic profile, sed rate, LDH level, serum iron studies, B12 and folate levels, TSH level, and serum lipase. She will be scheduled for CT scans of the chest, abdomen, and pelvis and she will be scheduled for a brain MRI. She will have further evaluation as indicated. Signed By: Vidal Cevallos M.D. <<Signature on File>>
== END 2021-05-07 14:51 | disposition home or self-care (01) ==
PROVIDERS: PCP Family Medicine; Visit Provider Internal Medicine Medical Oncology
DX: R59.0 Localized enlarged lymph nodes (principal); K58.9 Irritable bowel syndrome, unspecified; I34.1 Nonrheumatic mitral (valve) prolapse; F17.210 Nicotine dependence, cigarettes, uncomplicated; K21.9 Gastro-esophageal reflux disease without esophagitis; F19.11 Other psychoactive substance abuse, in remission; M19.90 Unspecified osteoarthritis, unspecified site; F41.8 Other specified anxiety disorders; F90.9 Attention-deficit hyperactivity disorder, unspecified type; Z86.16 Personal history of COVID-19; J44.9 Chronic obstructive pulmonary disease, unspecified; K86.81 Exocrine pancreatic insufficiency; Z86.19 Personal history of other infectious and parasitic diseases; M25.50 Pain in unspecified joint
CPT/HCPCS: 36415; 80053; 82607; 82746; 83540; 83550; 83615; 83690; 84443; 85025; 85651; 99214

== ENCOUNTER 2021-05-27 15:06 | Outpatient (CLI) | payer MEDICARE, MEDICAID, SELFPAY ==
--- NOTE | 2021-05-27 15:15 | MR_ITS ---
WS: [id number] MRI BRAIN WITH AND WITHOUT CONTRAST HISTORY: HEADACHE/MEMORY LOSS COMPARISON: 06/28/2012 TECHNIQUE: Multiplanar imaging performed through the brain with MultiHance 13 ml's IV. No acute infarcts are seen. Wisdom-white matter differentiation is well preserved. There are a few scat tered T2 and FLAIR signal hyperintensities from chronic microvascular ischemic disease. Age-appropria te. No acute infarct. No susceptibility artifacts or prior lacunar infarcts. Ventricles and extra-axial spaces are normal. Clivus and pituitary gland are normal. Visualized posterior fossa and brainstem are also normal. Postcontrast images are negative for masses or vascular malformations. Dural venous sinuses are normal. Paranasal sinuses: Well aerated with no significant disease. Mastoid air cells: Small amount of fluid in the LEFT mastoid air cells. Calvarium and scalp: Normal. MR/MR head wo/w con [id number] IMPRESSION: 1. Very minimal atrophy and chronic microvascular ischemic disease. 2. No hemorrhage or prior infarct. 3. No metastatic disease.
[2021-05-27] MEDS: gadobenate dimeglumine 20 mL vial IV (17:37)
== END 2021-05-27 15:07 | disposition home or self-care (01) ==
LOC: RAD 15:09
PROVIDERS: PCP Family Medicine; Visit Provider Internal Medicine Medical Oncology
DX: R51.9 Headache, unspecified (principal); R41.3 Other amnesia; I67.82 Cerebral ischemia; G31.9 Degenerative disease of nervous system, unspecified
CPT/HCPCS: 70553

== ENCOUNTER 2021-06-05 12:21 | Outpatient (CLI) | payer MEDICARE, MEDICAID, SELFPAY ==
--- NOTE | 2021-06-05 12:31 | CT_ITS ---
WS: [id number] CT CHEST, ABDOMEN AND PELVIS WITH CONTRAST. HISTORY: PULMONARY NODULES/LYMPHADENOPATHY TECHNIQUE: Contiguous 5 mm axial imaging performed through the chest, abdomen and pelvis with IV cont rast, oral contrast has been provided. Coronal and sagittal reformats chest. Coronal and sagittal ref ormats through the abdomen and pelvis. All CT scans at [facility] use at least one of these d ose optimization techniques: automated exposure control; mA and/or kV adjustment per patient size (in cludes targeted exams where dose is matched to clinical indication); or iterative reconstruction. CONTRAST: Omnipaque 300; 95 mL IV. DLP: 1155.34 mGy.cm COMPARISON: 01/24/2020, 08/12/[address]: No new pulmonary mass or nodule. No enlarging nodules. Lungs are mildly hyperinflated from emphysema. Inferior RIGHT paratracheal lymph node measures 8.4 mm at maximum which is not increasing in size. There is less perihilar lymphoid tissue as described on the prior study. No increasing or ne w adenopathy. Normal size aorta and pulmonary artery. No axillary adenopathy. Heart size is normal. N o pericardial or pleural effusion. Anterior chest wall is negative. No osteoblastic or osteolytic bon e disease. Abdomen CT: Small amount of pneumobilia was present on the prior study. Pneumobilia in the central li derek has slightly increased. No mass or bile duct dilatation. Normal portal vein. Normal SMV. Prior ch olecystectomy. No bile duct dilatation. Pancreas is negative. No bile duct dilatation. Normal spleen. No adrenal mass. Normal aorta. Normal enhancement of the mesenteric arteries. Both kidneys are elodia l size. No renal mass or obstruction. No mesenteric or retroperitoneal significant adenopathy or enla rging lymph nodes. Stomach is nondistended. As per history prior Stacey fundoplication. No small bowel obstruction or di latation. Colon is normal size. Prior appendectomy. Pelvic CT: No free fluid in the pelvis. No adenopathy. Prior hysterectomy. Urinary bladder is only mi ldly distended. High density 5 mm nodule in the region of the vagina is probably related to a small c yst with increased protein content. No osteoblastic or osteolytic bone disease. Mild RIGHT curvature lumbar spine. CT/CT chest abd pel w con* IMPRESSION: 1. No significant adenopathy within the chest, abdomen or pelvis. Subcentimete r lymph nodes in the mediastinum are stable or decreased in size. 2. Mild chronic emphysema. 3. Status post cholecystectomy. Small amount of pneumobilia present in the gerry tral liver. Probably due to the cholecystectomy. 4. Prior appendectomy and hysterectomy.
[2021-06-05] MEDS: iohexol 300 mg/mL 100 mL Btl IV (12:54)
== END 2021-06-05 12:22 | disposition home or self-care (01) ==
LOC: RAD 12:22
PROVIDERS: PCP Family Medicine; Visit Provider Internal Medicine Medical Oncology
DX: R91.8 Other nonspecific abnormal finding of lung field (principal); R59.1 Generalized enlarged lymph nodes; J43.9 Emphysema, unspecified; Z90.49 Acquired absence of other specified parts of digestive tract; Q42.8 Congenital absence, atresia and stenosis of other parts of large intestine; Z90.710 Acquired absence of both cervix and uterus
CPT/HCPCS: 71260; 74177; 99999

== ENCOUNTER → 2021-06-06 13:23 | Outpatient (BNVA) | payer MEDICARE, MEDICAID, SELFPAY | PROVIDERS: PCP Family Medicine; Visit Provider Psychiatry & Neurology Psychiatry | DX: F43.12 Post-traumatic stress disorder, chronic (principal); F33.2 Major depressive disorder, recurrent severe without psychotic features; F60.3 Borderline personality disorder; F41.1 Generalized anxiety disorder; F17.210 Nicotine dependence, cigarettes, uncomplicated | CPT/HCPCS: 99204 ==

== ENCOUNTER 2021-06-25 14:19 | Outpatient (CLI) | payer MEDICARE, MEDICAID, SELFPAY ==
--- NOTE | 2021-06-25 14:24 | MM_ITS ---
WS: [id number] VIEWS: MLO and CC views both breasts. 3D digital tomosynthesis is also included in this exam. Comparison made with prior on the CC view only. Remaining aspects of both breasts were unchanged.Scat tered fibroglandular densities Regional ultrasound of the lateral aspect the left breast and compress ion spot imaging would be indicated for further workup. MM/[id number] Impression: BI-RADS: 0-Incomplete: Need additional imaging evaluation FOLLOW-UP: Need Additional Imaging This mammogram was also analyzed by the Computer Aided Detection System R2 Imag e Risk Control Officer.
== END 2021-06-25 14:20 | disposition home or self-care (01) ==
LOC: RADSHAW 14:22
PROVIDERS: PCP Family Medicine; Visit Provider Family Medicine
DX: Z12.31 Encounter for screening mammogram for malignant neoplasm of breast (principal)
CPT/HCPCS: 77063; 77067

== ENCOUNTER 2021-08-06 14:32 | Outpatient (CLI) | payer MEDICARE, MEDICAID, SELFPAY ==
--- NOTE | 2021-08-06 14:44 | MM_ITS ---
WS: [id number] LEFT 3D TOMOSYNTHESIS DIGITAL MAMMOGRAPHY WITH CAD CLINICAL INFORMATION: ABNORMAL FINDING ON BREAST IMAGING HISTORY: LEFT breast soreness COMPARISON: June 25, 2021 TECHNIQUE: 3 views of the left breast were obtained. FINDINGS: The left breast is composed of extremely dense tissue, which can limit the detection of small underly ing mass lesions. Spot compression views upper outer LEFT breast with scattered fibroglandular densit ies in the area of concern. Ultrasound is pending. ULTRASOUND BREAST LEFT TECHNIQUE: Ultrasound left breast focused area of concern. CLINICAL INFORMATION: ABNORMAL FINDING ON BREAST IMAGING FINDINGS: Ultrasound LEFT breast at the 12:00 to 6:00 position. Small hypoechoic lesion measuring 3 x 2 x 3.3 m m at the 2:00 position 1 cm from the nipple with a small amount of through-transmission. This is comp atible with a small incidental cyst. No other suspicious abnormalities. Recommend return to annual sc reening mammography. MM/[id number] IMPRESSION: BI-RADS: 2-Benign FOLLOW UP: 1 Year Follow-up Recommend return to annual screening mammography.
== END 2021-08-06 14:33 | disposition home or self-care (01) ==
LOC: RAD 14:35
PROVIDERS: PCP Family Medicine; Visit Provider Family Medicine
DX: F41.1 Generalized anxiety disorder (principal); F33.2 Major depressive disorder, recurrent severe without psychotic features; F17.210 Nicotine dependence, cigarettes, uncomplicated; F43.12 Post-traumatic stress disorder, chronic; F60.3 Borderline personality disorder
CPT/HCPCS: 76642; 77061; 99213

== ENCOUNTER 2022-01-30 11:30 | Outpatient (CLI) | payer MEDICARE, MEDICAID, SELFPAY ==
--- NOTE | 2022-01-30 11:55 | MR_ITS ---
NOTE: Report was unsigned for reason: Ordering provider was edited. Original Signature date and time was: 01/30/2022 1330 WS: [id number] MRI THORACIC SPINE noncontrast. HISTORY: CHRONIC LEFT-SIDED THORACIC BACK PAIN COMPARISON: None available. TECHNIQUE: Multiplanar sequences are performed in sagittal and axial planes. Mild RIGHT curvature of the thoracic spine. Posterior thoracic alignment is normal. No fractures. Disc spaces are well-maintained. No marrow edema. Signal within the cord is normal. Mild osteophytic ridging at C6-7 and C7-T1. T1-2: Normal. T2-3: Normal. T3-4: Mild RIGHT facet joint arthritis. T4-5: Normal. T5-6: Normal. T6-7: Normal. T7-8: Normal. T8-9: Normal. T9-10: Normal. T10-11: Normal. T11-12: Normal. Paravertebral soft tissues are normal. [facility] MR[facility]MR thoracic spin wo con* [id number] IMPRESSION: 1. Moderate curvature thoracic spine. 2. No disc protrusions or stenosis. 3. No cord compression.
== END 2022-01-30 11:31 | disposition home or self-care (01) ==
PROVIDERS: PCP Family Medicine
DX: M54.6 Pain in thoracic spine (principal); G89.29 Other chronic pain; M43.9 Deforming dorsopathy, unspecified
CPT/HCPCS: 72146

== ENCOUNTER → 2022-03-11 13:33 | Outpatient (BNVA) | payer MEDICARE, MEDICAID, SELFPAY | PROVIDERS: PCP Family Medicine; Visit Provider Internal Medicine Cardiovascular Disease | DX: F41.1 Generalized anxiety disorder (principal); F17.210 Nicotine dependence, cigarettes, uncomplicated; F60.3 Borderline personality disorder; F33.2 Major depressive disorder, recurrent severe without psychotic features; F43.12 Post-traumatic stress disorder, chronic; M54.9 Dorsalgia, unspecified; G89.29 Other chronic pain; K86.1 Other chronic pancreatitis; I10 Essential (primary) hypertension | CPT/HCPCS: 99213 ==

== ENCOUNTER 2022-08-07 14:03 | Outpatient (CLI) | payer MEDICARE, MEDICAID, SELFPAY ==
--- NOTE | 2022-08-07 14:24 | MM_ITS ---
WS: [id number] BILATERAL 3D TOMOSYNTHESIS DIGITAL SCREENING MAMMOGRAPHY WITH CAD CLINICAL INFORMATION: SCREENING HISTORY: Screening mammogram. Bilateral breast pain COMPARISON: 2021 TECHNIQUE: Bilateral CC and MLO views. FINDINGS: Scattered fibroglandular densities bilaterally. No suspicious focal mass, asymmetry, calcifications, or architectural distortion. No evidence of malignancy. MM/[id number] IMPRESSION: BI-RADS: 1-Negative FOLLOW UP: 1 Year Follow-up Recommend return to annual screening mammography.
== END 2022-08-07 14:04 | disposition home or self-care (01) ==
PROVIDERS: PCP Family Medicine; Visit Provider Family Medicine
DX: Z12.31 Encounter for screening mammogram for malignant neoplasm of breast (principal)
CPT/HCPCS: 77063; 77067

== ENCOUNTER → 2024-12-13 11:32 | Outpatient (BNVA) | payer OTHER, SELFPAY | PROVIDERS: PCP Family Medicine; Visit Provider Nurse Practitioner Psychiatric/Mental Health | DX: Z03.89 Encounter for observation for other suspected diseases and conditions ruled out (principal) | CPT/HCPCS: 80053; 84443; 85025 ==